=== PATIENT | female | born 1995 | race African-American/Black ===

== ENCOUNTER 2016-09-29 18:54 | Emergency (ER) | payer OTHER ==
[2016-09-29 19:03] VITALS: BP 135/70; PULSE 73; TEMP 98.7; BMI 26.3
--- NOTE | 2016-09-29 19:49 | PDOC ---
[id number] 100 09/29/16 19:01 09/29/16 19:01 09/29/16 19:01 09/29/16 19:01 09/29/16 19:01 ED Treatment Course - LABORATORY CBC & Chemistry Diagram: 09/29/16 20:15 09/29/16 20:15 Medical Decision Making - Medical Decision Making 09/29/16 19:48 agree with care from FILM PRODUCER Roosevelt WallDC/Admit/Observation/Transfer Diagnosis at time of Disposition: GERD (gastroesophageal reflux disease), Abdominal pain - Discharge Dispostion Disposition: HOME - Prescriptions Prescriptions: Famotidine [Pepcid -] 20 mg PO BID #14 tablet Pantoprazole Sodium [Protonix] 40 mg PO BID #28 tablet. Tramadol HCl 50 mg PO Q6H PRN #12 tablet MDD 4 tabs PRN Reason: Severe Pain - Referrals Referrals: Lele Pagan MD [Primary Care Provider] - - Patient Instructions Printed Discharge Instructions: DI for Abdominal Pain-Adult Additional Instructions: FOLLOW UP WITH YOUR PRIMARY CARE PROVIDER. CALL TO SCHEDULE APPOINTMENT. YOU NEED TO SEE YOUR GI DOCTOR WELL. RESCHEDULE YOUR APPOINTMENT. TAKE MEDICATIONS PRESCRIBED. DO NOT DRIVE, DRINK ALCOHOL OR OPERATE HEAVY MACHINERY WHILE TAKING TRAMADOL. Print Language: MALDIVIAN - Post Discharge Activity Work/School Note: Back to Work
[2016-09-29] MEDS ORDERED: FAMOTIDINE 20 MG/50 ML IVPB 50 ML IVPB ONE ×2 (19:59→20:30)
[2016-09-29] MEDS ORDERED: SODIUM CHLORIDE 1,000 ML IV STA ×2 (19:59→21:32)
[2016-09-29] MEDS ORDERED: PANTOPRAZOLE SODIUM 40 MG in SODIUM CHLORIDE 100 ML IVPB ONE (19:59)
[2016-09-29 20:22] LABS: URINE APPEARANCE SLCLOUDY; URINE BILIRUBIN NEGATIVE (NEGATIVE); URINE BLOOD NEGATIVE (NEGATIVE); URINE COLOR YELLOW; URINE GLUCOSE (UA) NEGATIVE (NEGATIVE); URINE KETONE NEGATIVE (NEGATIVE); URINE NITRITE NEGATIVE (NEGATIVE); URINE PROTEIN NEGATIVE (NEGATIVE); URINE UROBILINOGEN NEGATIVE E.U./dl (0.2-1.0)
[2016-09-29 20:25] LABS: URINE LEUK ESTERASE 1+ (NEGATIVE)
[2016-09-29 20:26] LABS: URINE MUCUS RARE; URINE RBC 5 /hpf (0-3); URINE WBC 5 /hpf (3-5)
[2016-09-29] MEDS ORDERED: PANTOPRAZOLE SODIUM 100 ML IVPB ONE (20:30)
[2016-09-29 20:34] LABS: MCH 26.1 pg (25.7-33.7); MCHC 31.7 g/dl (32.0-36.0); MEAN CELL VOLUME 82.6 fl (80-96); MEAN PLT VOLUME 8.5 fl (7.5-11.1); PLATELET COUNT 238 K/MM3 (134-434); RDW 13.7 % (11.6-15.6); WHITE BLOOD COUNT 7.7 K/mm3 (4.0-10.0)
--- NOTE | 2016-09-29 20:34 | PDOC ---
History of Present Illness - General Chief Complaint: Pain Stated Complaint: ABDOMINAL PAIN Time Seen by Provider: 09/29/16 19:39 History Source: Patient Exam Limitations: No Limitations - History of Present Illness Travel History: No Initial Comments: 09/29/16 20:29 21yo Female patient presents to ED c/o epigastric and chest pain radiating to her back. Patient denies n/v/d, fever, diff breathing. She reports no appetite and she does not eat much. Associated constipation at times. LNMP: 3 weeks ago. Denies any other complaints at this time. Timing/Duration: reports: changing over time Quality: reports: moderate Abdominal Pain Onset Location: reports: epigastric Pain Radiation: reports: no radiation Activities at Onset: reports: no specific activity Treatment Prior to Arrive: worse with: analgesics, antacids, cold pack, heat, laxative, enema, other Aggravating Factors: improves with: None Alleviating Factors: improves with: None Past History - Travel Traveled outside of the country in the last 30 days: No Close contact w/someone who was outside of country & ill: No - Past Medical History Allergies/Adverse Reactions: Allergies Allergy/AdvReac Type Severity Reaction Status Date / Time amoxicillin [Amoxicillin] Allergy Severe Itching Verified 09/29/16 19:00 kiwi Allergy Severe Swelling Verified 09/29/16 19:00 Penicillins Allergy Verified 09/29/16 19:00 Home Medications: Ambulatory Orders Albuterol Sulfate Inhaler - [Ventolin HFA Inhaler -] 2 inh PO Q4H PRN #1 inh 04/01 Metronidazole 0.75% Vag. Gel [Metrogel 0.75% Vaginal Gel -] 1 applic VG HS #5 tube 07/02/16 Famotidine [Pepcid -] 20 mg PO BID #14 tablet 09/29/16 Pantoprazole Sodium [Protonix] 40 mg PO BID #28 tablet. 09/29/16 Tramadol HCl 50 mg PO Q6H PRN #12 tablet MDD 4 tabs 09/29/16 Asthma: No Cancer: No Cardiac Disorders: No Diabetes: No HTN: No Suicide Attempt (Hx): No Seizures: No Thyroid Disease: No - Immunization History Immunization Up to Date: Yes (no flu) - Psycho/Social/Smoking Cessation Hx Anxiety: No Suicidal Ideation: No Smoking Status: No Smoking History: Never smoked Have you smoked in the past 12 months: No Number of Cigarettes Smoked Daily: 0 Information on smoking cessation initiated: No Hx Alcohol Use: No Drug/Substance Use Hx: No Substance Use Type: None Hx Substance Use Treatment: No Abd/GI Specific PMHX - Complaint Specific PMHX Colitis: No Diverticulitis: No Gall Bladder Disease: No GERD: No Hepatitis: No Irritable Bowel Synd (IBS): No Pancreatitis: No GI Ulcer Disease: No Review of Systems - Review of Systems Able to Perform ROS?: Yes Is the patient limited Palestinian proficient: No Constitutional: No: Chills, Fever, Loss of Appetite HEENTM: No: Blurred Vision, Double Vision, Nose Congestion, Dental Problems, Difficulty Swallowing Respiratory: No: Cough, Orthopnea, Shortness of Breath Cardiac (ROS): Yes: Chest Pain. No: Edema, Irregular Heart Rate, Lightheadedness, Palpitations, Syncope, Chest Tightness ABD/GI: Yes: Constipated, Poor Appetite, Other (Abdominal Pain). No: Abd. Pain w/ defecation, Blood Streaked Bowels, Diarrhea, Difficulty Swallowing, Nausea, Poor Fluid Intake, Rectal Bleeding, Vomiting, Tarry Stools : No: Burning, Dysuria, Frequency, Flank Pain, Hematuria, Incontinence, Pain Musculoskeletal: Yes: Back Pain. No: Joint Pain, Muscle Pain, Muscle Weakness, Neck Pain Integumentary: No: Dryness, Erythema, Pruritus, Rash Neurological: No: Headache, Numbness, Paresthesia, Seizure, Tingling, Tremors Psychiatric: No: Depression, Frequent Crying, Stressors All Other Systems: Reviewed and Negative *Physical Exam - Vital Signs Last Vital Signs Temp Pulse Resp BP Pulse Ox 98.7 F 73 20 135/70 100 09/29/16 19:01 09/29/16 19:01 09/29/16 19:01 09/29/16 19:01 09/29/16 19:01 - Physical Exam General Appearance: Yes: Nourished, Appropriately Dressed. No: Apparent Distress, Mild Distress, Moderate Distress, Severe Distress HEENT: positive: EOMI, RICARDO, Normal ENT Inspection, Normal Voice, Symmetrical Neck: positive: Trachea midline, Supple Respiratory/Chest: positive: Lungs Clear, Normal Breath Sounds. negative: Respiratory Distress, Accessory Muscle Use, Labored Respiration, Decreased Breath Sounds, Rhonchi, Stridor, Wheezing Cardiovascular: positive: Regular Rhythm, Regular Rate. negative: JVD, Murmur Gastrointestinal/Abdominal: positive: Normal Bowel Sounds, Tender, Flat, Soft, Tenderness (Epigastric region). negative: Increased Bowel Sounds, Distended, Guarding, Rebound Lymphatic: negative: Adenopathy Musculoskeletal: positive: Normal Inspection, Vertebral Tenderness. negative: CVA Tenderness Extremity: positive: Normal Inspection, Normal Range of Motion. negative: Delayed Capillary Refill, Pedal Edema, Swelling, Calf Tenderness Integumentary: positive: Normal Color, Dry, Warm. negative: Clammy, Diaphoresis , Swelling Neurologic: positive: contracts paralegal II-XII NML intact, Fully Oriented, Alert, Normal Mood/ Affect, Normal Response, Motor Strength 01/20 ED Treatment Course - LABORATORY CBC & Chemistry Diagram: 09/29/16 20:15 09/29/16 20:15 - ADDITIONAL ORDERS Additional order review: Laboratory Results 09/29/16 20:10 Urine Color Yellow Urine Appearance Slcloudy Urine pH 8.0 D Ur Specific [place] 1.030 Urine Protein Negative Urine Glucose (UA) Negative Urine Ketones Negative Urine Blood Negative Urine Nitrite Negative Urine Bilirubin Negative Urine Urobilinogen Negative Ur Leukocyte Esterase 1+ H Urine RBC 5 Urine WBC 5 Ur Epithelial Cells Few Urine Mucus Rare Urine HCG, Qual Negative *DC/Admit/Observation/Transfer Diagnosis at time of Disposition: GERD (gastroesophageal reflux disease) Qualifiers: Esophagitis presence: without esophagitis Qualified Code(s): K21.9 - Gastro- esophageal reflux disease without esophagitis Abdominal pain Qualifiers: Abdominal location: epigastric Qualified Code(s): R10.13 - Epigastric pain - Discharge Dispostion Disposition: HOME Condition at time of disposition: Good Admit: No - Prescriptions Prescriptions: Famotidine [Pepcid -] 20 mg PO BID #14 tablet Pantoprazole Sodium [Protonix] 40 mg PO BID #28 tablet. Tramadol HCl 50 mg PO Q6H PRN #12 tablet MDD 4 tabs PRN Reason: Severe Pain - Patient Instructions Printed Discharge Instructions: DI for Abdominal Pain-Adult Additional Instructions: FOLLOW UP WITH YOUR PRIMARY CARE PROVIDER. CALL TO SCHEDULE APPOINTMENT. YOU NEED TO SEE YOUR GI DOCTOR WELL. RESCHEDULE YOUR APPOINTMENT. TAKE MEDICATIONS PRESCRIBED. DO NOT DRIVE, DRINK ALCOHOL OR OPERATE HEAVY MACHINERY WHILE TAKING TRAMADOL. Print Language: MARTINIQUAIS - Post Discharge Activity Work/School Note: Back to Work
[2016-09-29] MEDS ORDERED: OXYCODONE/APAP 5/325MG COMBO TABLET PO ONE (21:10)
[2016-09-29 21:34] LABS: ALBUMIN 3.8 g/dl (3.4-5.0); BILIRUBIN,DIRECT 0.1 mg/dL (0.0-0.2); BILIRUBIN,TOTAL 0.4 mg/dL (0.2-1.0); CALCIUM 8.7 mg/dL (8.5-10.1); CREATININE 0.7 mg/dL (0.55-1.02); TOT PROT 7.1 g/dl (6.4-8.2)
[2016-09-29] MEDS ORDERED: OXYCODONE/APAP 5/325MG COMBO TABLET ONE (21:49)
[2016-09-29] MEDS ORDERED: KETOROLAC TROMETHAMINE 60 MG/2 ML VIAL ONE (21:56)
[2016-09-29] MEDS ORDERED: KETOROLAC TROMETHAMINE 30 MG/1 ML VIAL IM ONE (21:57)
== END 2016-09-29 23:58 | disposition home or self-care (01) ==
LOC: JER 18:54
PROC: 3E0337Z Introduction of Electrolytic and Water Balance Substance into Peripheral Vein, Percutaneous Approach (ICD-10-PCS; principal; 2016-09-29)
PROC: 3E033GC Introduction of Other Therapeutic Substance into Peripheral Vein, Percutaneous Approach (ICD-10-PCS; 2016-09-29)
PROC: 3E033GC Introduction of Other Therapeutic Substance into Peripheral Vein, Percutaneous Approach (ICD-10-PCS; 2016-09-29)
PROC: 3E0233Z Introduction of Anti-inflammatory into Muscle, Percutaneous Approach (ICD-10-PCS; 2016-09-29)
DX: K21.9 Gastro-esophageal reflux disease without esophagitis (principal)
CPT/HCPCS: 36415; 76705-TC; 80048; 80076; 81003; 81015; 84703; 85027; 99281-25

== ENCOUNTER 2017-03-27 11:01 | Emergency (ER) | payer OTHER ==
[2017-03-27 11:06] VITALS: BP 130/64; PULSE 66; TEMP 98; BMI 28.7
--- NOTE | 2017-03-27 11:23 | PDOC ---
History of Present Illness - General Chief Complaint: Rash Stated Complaint: RASH Time Seen by Provider: 03/27/17 11:12 History Source: Patient Exam Limitations: No Limitations - History of Present Illness Initial Comments: 03/27/17 19:52 22 yr female with itchy rash to left ring finger for 4 days . pt has history of eczema states this is the same. Past History - Past Medical History Allergies/Adverse Reactions: Allergies Allergy/AdvReac Type Severity Reaction Status Date / Time amoxicillin [Amoxicillin] Allergy Severe Itching Verified 03/27/17 11:03 kiwi Allergy Severe Swelling Verified 03/27/17 11:03 Penicillins Allergy Verified 03/27/17 11:03 Home Medications: Ambulatory Orders Desonide 15 gm TP BID #1 cream..g. 03/27/17 Asthma: No Cancer: No Cardiac Disorders: No Diabetes: No HTN: No Suicide Attempt (Hx): No Seizures: No Thyroid Disease: No Other medical history: none - Immunization History Immunization Up to Date: Yes (no flu) - Psycho/Social/Smoking Cessation Hx Anxiety: No Suicidal Ideation: No Smoking Status: No Smoking History: Never smoked Have you smoked in the past 12 months: No Number of Cigarettes Smoked Daily: 0 Hx Alcohol Use: No Drug/Substance Use Hx: No Substance Use Type: None Hx Substance Use Treatment: No Review of Systems - Review of Systems Able to Perform ROS?: Yes Is the patient limited Malay proficient: No Constitutional: No: Symptoms Reported HEENTM: No: Symptoms Reported Respiratory: No: Symptoms reported Cardiac (ROS): No: Symptoms Reported ABD/GI: No: Symptoms Reported : No: Symptoms Reported Integumentary: Yes: See HPI *Physical Exam - Vital Signs Last Vital Signs Temp Pulse Resp BP Pulse Ox 98.0 F 66 18 130/64 100 03/27/17 11:03 03/27/17 11:03 03/27/17 11:03 03/27/17 11:03 03/27/17 11:03 - Physical Exam General Appearance: Yes: Nourished, Appropriately Dressed HEENT: positive: EOMI, RICARDO Extremity: positive: Normal Capillary Refill, Normal Inspection, Normal Range of Motion Integumentary: positive: Rash (left ring and middle digits web space and distal phalynx with excoriated, scaly rash , no pus drainage) Medical Decision Making - Medical Decision Making 03/27/17 19:53 cc: itchy rash to fingers history of eczema pt states the same symptoms as before no fever will prescribe cortisone cream and derm follow up pt agrees with plan of care and understands at home care as well for eczema *DC/Admit/Observation/Transfer Diagnosis at time of Disposition: Eczema Qualifiers: Eczema type: flexural Qualified Code(s): L20.82 - Flexural eczema - Discharge Dispostion Disposition: HOME Condition at time of disposition: Good - Prescriptions Prescriptions: Desonide 15 gm TP BID #1 cream..g. - Referrals Referrals: Lele Pagan MD [Primary Care Provider] - Suzette Sahu MD [Staff Physician] - - Patient Instructions Additional Instructions: cool water to wash, avoid washing hands frequently apply the steroid cream 2-3 times a day and continue to apply an emolient such as Eucerin or Lubriderm follow with the plastic mould maker if any worsening symptoms
== END 2017-03-27 11:37 | disposition home or self-care (01) ==
LOC: JERFT 11:01
DX: L20.82 Flexural eczema (principal)
CPT/HCPCS: 99281-25

== ENCOUNTER 2017-04-06 12:34 | Emergency (ER) | payer OTHER ==
[2017-04-06 12:39] VITALS: BP 119/79; PULSE 67; TEMP 97.8; BMI 27.4
--- NOTE | 2017-04-06 13:25 | PDOC ---
History of Present Illness - General Chief Complaint: Rash Stated Complaint: Rash on groin area, pain Time Seen by Provider: 04/06/17 13:08 History Source: Patient Exam Limitations: No Limitations - History of Present Illness Initial Comments: 04/06/17 13:25 22 yr female history of eczema c/o ingrown hair to groin for 2 days. no fever no chills no vaginal discharge. Past History - Past Medical History Allergies/Adverse Reactions: Allergies Allergy/AdvReac Type Severity Reaction Status Date / Time amoxicillin [Amoxicillin] Allergy Severe Itching Verified 04/06/17 12:38 kiwi Allergy Severe Swelling Verified 04/06/17 12:38 Penicillins Allergy Verified 04/06/17 12:38 Home Medications: Ambulatory Orders NK [No Known Home Medication] 04/06/17 Asthma: No Cancer: No Cardiac Disorders: No Diabetes: No HTN: No Suicide Attempt (Hx): No Seizures: No Thyroid Disease: No - Immunization History Immunization Up to Date: Yes (no flu) - Psycho/Social/Smoking Cessation Hx Anxiety: No Suicidal Ideation: No Smoking Status: No Smoking History: Never smoked Have you smoked in the past 12 months: No Number of Cigarettes Smoked Daily: 0 Information on smoking cessation initiated: No Hx Alcohol Use: No Drug/Substance Use Hx: No Substance Use Type: None Hx Substance Use Treatment: No *Physical Exam - Vital Signs Last Vital Signs Temp Pulse Resp BP Pulse Ox 97.8 F 67 18 119/79 100 04/06/17 12:37 04/06/17 12:37 04/06/17 12:37 04/06/17 12:37 04/06/17 12:37 - Physical Exam General Appearance: Yes: Nourished, Appropriately Dressed HEENT: positive: EOMI, RICARDO Neck: positive: Supple Respiratory/Chest: positive: Lungs Clear, Normal Breath Sounds Cardiovascular: positive: Regular Rhythm, Regular Rate Musculoskeletal: positive: Normal Inspection Extremity: positive: Normal Capillary Refill, Normal Inspection, Normal Range of Motion Integumentary: positive: Normal Color, Dry, Warm, Other (left labia minora with martinez x3 1mm in size each, grouped together, no drainage no fluctuance) Neurologic: positive: Fully Oriented, Alert, Normal Mood/Affect, Normal Response , Motor Strength 5/5 Medical Decision Making - Medical Decision Making 04/06/17 13:26 cc: ingrown hair to vaginal area no drainage, will culture to confirm not herpetic ,as the area is in the labia, is grouped together with suspicious white area. pt denies burning or pain, denies tingling to the area dc inst for frequent moist compresses, warm baths iron melter follow up pt agrees with the plan of care all questions asked and answered. 04/06/17 13:27 *DC/Admit/Observation/Transfer Diagnosis at time of Disposition: Ingrown hair - Discharge Dispostion Disposition: HOME Condition at time of disposition: Good - Patient Instructions Additional Instructions: frequent moist warm compresses to the area, no creams or vaseline to the area keep dry follow with your mixed animal veterinarian if worsening symptoms
== END 2017-04-06 13:26 | disposition home or self-care (01) ==
LOC: JERFT 12:34
DX: L73.1 Pseudofolliculitis barbae (principal)
CPT/HCPCS: 87255; 99281-25

== ENCOUNTER 2018-01-07 10:47 | Emergency (ER) | payer OTHER ==
[2018-01-07 10:56] VITALS: BP 131/73; PULSE 62; TEMP 98.7; BMI 28.1
--- NOTE | 2018-01-07 11:21 | PDOC ---
History of Present Illness - General Chief Complaint: Urinary Problem Stated Complaint: COUGH Time Seen by Provider: 01/07/18 11:09 - History of Present Illness Initial Comments: 01/07/18 11:17 CHIEF COMPLAINT: urinary frequency HISTORY OF PRESENT ILLNESS: 22 yo F with no PMH presents to [facility] with urinary pressure and frequency. She reports that she went to the OBGYN a few days ago and had a urine test that showed "strep in my urine, but because I didnt' have any symptoms my doctor didn't prescribe anything." She denies any back pain, fever, chills, vomiting, or diarrhea. PAST MEDICAL HISTORY: Denies past medical history FAMILY HISTORY: Denies SOCIAL HISTORY: Denies tobacco, alcohol, illicit drug use. SURGICAL HISTORY: Denies ALLERGIES: PCN REVIEW OF SYSTEMS General/Constitutional: Denies fever or chills. Denies weakness, weight change. HEENT: Denies change in vision. Denies ear pain or discharge. Denies sore throat. Cardiovascular: Denies chest pain or shortness of breath. Respiratory: Denies cough, wheezing, or hemoptysis. Gastrointestinal: Denies nausea, vomiting, diarrhea or constipation. Denies rectal bleeding. Genitourinary: Urinary "pressure" and frequency. Denies pain or burning with urination. Musculoskeletal: Denies joint or muscle swelling or pain. Denies neck or back pain. PHYSICAL EXAM General Appearance: Well-appearing, appropriately dressed. No apparent distress , no intoxication. Respiratory/Chest: Lungs CTAB. Cardiovascular: RRR. S1, S2. Gastrointestinal/Abdominal: Normal bowel sounds. Abdomen soft, non-distended. No tenderness or rebound tenderness. No organomegaly, pulsatile mass, guarding , hernia, hepatomegaly, splenomegaly. Musculoskeletal/Extremities: Normal inspection. FROM of all extremities, normal capillary refill. Pelvis Stable. No CVA tenderness. No tenderness to extremities, pedal edema, swelling, erythema or deformity. Integumentary: Appropriate color, dry, warm. No cyanosis, erythema, jaundice or rash Neurologic: automobile mechanic assistant II-XII intact. Fully oriented, alert. Appropriate mood/affect. Motor strength 5/5. No appreciable EOM palsy, facial droop or sensory deficit. Past History - Past Medical History Allergies/Adverse Reactions: Allergies Allergy/AdvReac Type Severity Reaction Status Date / Time amoxicillin [Amoxicillin] Allergy Severe Itching Verified 01/07/18 10:57 kiwi Allergy Severe Swelling Verified 01/07/18 10:57 Penicillins Allergy Verified 01/07/18 10:57 Home Medications: Ambulatory Orders Cephalexin [Keflex] 500 mg PO BID #14 capsule 01/07/18 Asthma: No Cancer: No Cardiac Disorders: No COPD: No Diabetes: No HTN: No Seizures: No Thyroid Disease: No - Immunization History Immunization Up to Date: Yes (no flu) - Suicide/Smoking/Psychosocial Hx Smoking Status: No Smoking History: Current every day smoker Have you smoked in the past 12 months: No Number of Cigarettes Smoked Daily: 0 Information on smoking cessation initiated: No Hx Alcohol Use: No Drug/Substance Use Hx: No Substance Use Type: None Hx Substance Use Treatment: No Abd/GI Specific PMHX - Complaint Specific PMHX Colitis: No Diverticulitis: No Gall Bladder Disease: No GERD: No Hepatitis: No Irritable Bowel Synd (IBS): No Pancreatitis: No GI Ulcer Disease: No *Physical Exam - Vital Signs Last Vital Signs Temp Pulse Resp BP Pulse Ox 98.7 F 62 18 131/73 100 01/07/18 10:53 01/07/18 10:53 01/07/18 10:53 01/07/18 10:53 01/07/18 10:53 Medical Decision Making - Medical Decision Making 01/07/18 11:19 22 yo F with no PMH presents to [facility] with urinary pressure and frequency. -UA, UCx, upreg abx Advised patient to take medication as prescribed and follow up with emergency generator mechanic if symptoms persist. Advised patient of signs and symptoms for return to ED. Patient verbalized understanding and agrees to plan. *DC/Admit/Observation/Transfer Diagnosis at time of Disposition: UTI (urinary tract infection) - Discharge Dispostion Disposition: HOME Condition at time of disposition: Stable Admit: No - Prescriptions Prescriptions: Cephalexin [Keflex] 500 mg PO BID #14 capsule - Referrals - Patient Instructions Printed Discharge Instructions: DI for Urinary Tract Infection (UTI) Additional Instructions: Please take medications as prescribed; follow up with your OBGYN if symptoms persist past 5-7 days. If you develop fever, chills, vomiting, diarrhea, or any new or worsening symptoms, please return to the ER. - Post Discharge Activity
[2018-01-07 11:28] LABS: HCG,QUALITATIVE URINE NEGATIVE
[2018-01-07 11:29] LABS: URINE APPEARANCE CLOUDY; URINE BILIRUBIN NEGATIVE (<2.0 mg/dL); URINE BLOOD 1+ (NEGATIVE); URINE COLOR YELLOW; URINE GLUCOSE (UA) NEGATIVE (NEGATIVE); URINE KETONE NEGATIVE (NEGATIVE); URINE NITRITE NEGATIVE (NEGATIVE); URINE UROBILINOGEN NEGATIVE mg/dL (0.2-1.0)
[2018-01-07 11:30] LABS: URINE LEUK ESTERASE 3+ (NEGATIVE); URINE PROTEIN 1+ (NEGATIVE)
[2018-01-07 11:32] LABS: EPI CELLS MODERATE /HPF (FEW); URINE MUCUS MANY
== END 2018-01-07 11:59 | disposition home or self-care (01) ==
LOC: JERFT 10:47
DX: N39.0 Urinary tract infection, site not specified (principal)
CPT/HCPCS: 81003; 81015; 84703; 87086; 87186; 99281-25

== ENCOUNTER 2018-01-15 09:28 | Emergency (ER) | payer OTHER | END 2018-01-15 14:00 | disposition home or self-care (01) | LOC: JER 09:28 | PROC: 3E033NZ Introduction of Analgesics, Hypnotics, Sedatives into Peripheral Vein, Percutaneous Approach (ICD-10-PCS; principal; 2018-01-15) | PROC: 3E0337Z Introduction of Electrolytic and Water Balance Substance into Peripheral Vein, Percutaneous Approach (ICD-10-PCS; 2018-01-15) | DX: N83.209 Unspecified ovarian cyst, unspecified side (principal) | CPT/HCPCS: 36415; 76830-TC; 80053; 81003; 81015; 84703; 85027; 96374; 99283-25; J0131; J7030 ==

== ENCOUNTER 2018-08-23 11:02 | Emergency (ER) | payer OTHER ==
[2018-08-23 11:12] VITALS: BP 127/66; PULSE 71; TEMP 97.9; BMI 28.2
[2018-08-23 11:21] LABS: URINE APPEARANCE CLOUDY; URINE BILIRUBIN NEGATIVE (<2.0 mg/dL); URINE COLOR LTYELLOW; URINE GLUCOSE (UA) NEGATIVE (NEGATIVE); URINE KETONE NEGATIVE (NEGATIVE); URINE LEUK ESTERASE 3+ (NEGATIVE); URINE NITRITE NEGATIVE (NEGATIVE); URINE PROTEIN 1+ (NEGATIVE); URINE UROBILINOGEN NEGATIVE mg/dL (0.2-1.0)
[2018-08-23] MEDS ORDERED: AZITHROMYCIN 500 MG TABLET PO ONE (11:46)
--- NOTE | 2018-08-23 11:48 | PDOC ---
History of Present Illness - General Chief Complaint: Urinary Problem Stated Complaint: PAIN Time Seen by Provider: 08/23/18 11:36 History Source: Patient Exam Limitations: No Limitations - History of Present Illness Travel History: No Initial Comments: 08/23/18 11:43 HISTORY OF PRESENT ILLNESS: This is a 23-year-old woman with past medical history of genital herpes an abnormal Pap smear who presents emergency department for evaluation of urinary urgency for the past week. Patient reports she has foul-smelling urine in addition to the emergency. She denies any hematuria or dysuria. She denies vaginal discharge or rectal bleeding. Patient reports having unprotected vaginal sex with one male partner since her last STD testing. No recent travel or sick contacts. PAST MEDICAL HISTORY: HSV-2 SURGICAL HISTORY: PCN ALLERGIES: No known drug allergies REVIEW OF SYSTEMS General/Constitutional: Denies fever or chills. Denies weakness, weight change. HEENT: Denies change in vision. Denies ear pain or discharge. Denies sore throat. Cardiovascular: Denies chest pain or shortness of breath. Respiratory: Denies cough, wheezing, or hemoptysis. Gastrointestinal: Denies nausea, vomiting, diarrhea or constipation. Denies rectal bleeding. Genitourinary: Denies dysuria, frequency or hematuria. +urinary urgency and suprapubic pressure. Musculoskeletal: Denies joint or muscle swelling or pain. Denies neck or back pain. Skin and breasts: Denies rash or easy bruising. Neurologic: Denies headache, vertigo, loss of consciousness, or loss of sensation. Psychiatric: Denies depression or anxiety. Endocrine: Denies increased thirst. Denies abnormal weight change. Hematologic/Lymphatic: Denies anemia, easy bleeding, or history of blood clots. Allergic/Immunologic: Denies hives or skin allergy. Denies latex allergy. PHYSICAL EXAM General Appearance: Well-appearing, appropriately dressed. No apparent distress , no intoxication. Gastrointestinal/Abdominal: Normal bowel sounds. Abdomen soft, non-distended. No tenderness or rebound tenderness. No organomegaly, pulsatile mass, guarding, hernia, hepatomegaly, splenomegaly. Lymphatic: No adenopathy, tenderness. Musculoskeletal/Extremities: Normal inspection. FROM of all extremities, normal capillary refill. Pelvis Stable. No CVA tenderness. No tenderness to extremities, pedal edema, swelling, erythema or deformity. Past History - Past Medical History Allergies/Adverse Reactions: Allergies Allergy/AdvReac Type Severity Reaction Status Date / Time amoxicillin [Amoxicillin] Allergy Severe Itching Verified 08/23/18 11:06 kiwi Allergy Severe Swelling Verified 08/23/18 11:06 Penicillins Allergy Verified 08/23/18 11:06 Home Medications: Ambulatory Orders Sulfamethoxazole/Trimethoprim [Bactrim Ds -] 1 tab PO BID #14 tablet 08/23/18 Asthma: No Cancer: No Cardiac Disorders: No COPD: No DVT: No Diabetes: No HTN: No Seizures: No Thyroid Disease: No Other medical history: "abnormal PAP smears" - Reproductive History Cervical CA: No Dysfunctional Uterine Bleeding: No Ectopic : No Endometrial CA: No Polycystic Ovaries: No Tubal Ligation: No - Immunization History Immunization Up to Date: Yes (no flu) - Suicide/Smoking/Psychosocial Hx Smoking Status: No Smoking History: Smoker current status UNK Have you smoked in the past 12 months: No Number of Cigarettes Smoked Daily: 0 'Breaking Loose' booklet given: 01/15/18 Hx Alcohol Use: No Drug/Substance Use Hx: No Substance Use Type: None Hx Substance Use Treatment: No Abd/GI Specific PMHX - Complaint Specific PMHX Colitis: No Diverticulitis: No Gall Bladder Disease: No GERD: No Hepatitis: No Irritable Bowel Synd (IBS): No Pancreatitis: No GI Ulcer Disease: No *Physical Exam - Vital Signs Last Vital Signs Temp Pulse Resp BP Pulse Ox 97.9 F 71 16 127/66 100 08/23/18 11:10 08/23/18 11:10 08/23/18 11:10 08/23/18 11:10 08/23/18 11:10 Moderate Sedation - Procedure Monitoring Vital Signs: Procedure Monitoring Vital Signs Temperature 97.9 F 08/23/18 11:10 Pulse Rate 71 08/23/18 11:10 Respiratory Rate 16 08/23/18 11:10 Blood Pressure 127/66 08/23/18 11:10 O2 Sat by Pulse Oximetry (%) 100 08/23/18 11:10 Medical Decision Making - Medical Decision Making 08/23/18 11:46 A/P: 23-year-old woman with 1 week of urinary urgency and foul-smelling urine No CVA tenderness Abdomen soft nontender nondistended Urine , urinalysis, urine culture, urine gonorrhea and chlamydia, azithromycin, ceftriaxone (PCN allergy- no cross-sesitivity with 3rd gen cephalosporins), reassess 08/23/18 12:45 Pt has refused GC treatment today. Agrees to return if C&S is positive. Urinalysis reveals 3+ leuk esterase. Given patient has clinical signs of urinary tract infection I will treat. Previous urine cultures have revealed pansensitive organisms. I'll discharge the patient on Bactrim and to follow-up with her primary doctor as scheduled. *DC/Admit/Observation/Transfer Diagnosis at time of Disposition: UTI (urinary tract infection) Qualifiers: Urinary tract infection type: acute cystitis Hematuria presence: without hematuria Qualified Code(s): N30.00 - Acute cystitis without hematuria - Discharge Dispostion Disposition: HOME Condition at time of disposition: Stable Decision to Admit order: No - Prescriptions Prescriptions: Sulfamethoxazole/Trimethoprim [Bactrim Ds -] 1 tab PO BID #14 tablet - Referrals - Patient Instructions Additional Instructions: Rest, drink lots of fluids: Teas, water, soups Avoid contact with others until fevers and symptoms resolved Lots of handwashing and good hygiene Continue [id number] medications for symptomatic relief Tylenol or Motrin for fever and pain Continue all of antibiotics until completed Followup with private physician in one week for repeat urinalysis/reevaluation Return to emergency department for worsened symptoms, fevers, dehydration - Post Discharge Activity
[2018-08-23] MEDS ORDERED: AZITHROMYCIN 250 MG TABLET ONE (11:49)
[2018-08-23 12:01] LABS: HCG,QUALITATIVE URINE Negative
[2018-08-23 12:50] LABS: EPI CELLS FEW /HPF (FEW); URINE BACTERIA RARE /hpf (NONE SEEN)
== END 2018-08-23 12:56 | disposition home or self-care (01) ==
LOC: JERFT 11:02
DX: N30.00 Acute cystitis without hematuria (principal)
CPT/HCPCS: 81003; 81015; 84703; 87086; 87186; 99281-25

== ENCOUNTER 2018-12-25 09:37 | Emergency (ER) | payer OTHER ==
[2018-12-25 09:45] VITALS: BP 130/73; PULSE 80; TEMP 97.8; BMI 27.4
[2018-12-25] MEDS ORDERED: ALBUTEROL SO4 2.5/IPRATROPIUM 0.5 INH SOL 3 ML VIAL.NEB. NEB ONE ×2 (09:48→09:51)
--- NOTE | 2018-12-25 10:03 | PDOC ---
History of Present Illness - General Chief Complaint: Cold Symptoms Stated Complaint: TROUBLE BREATHING Time Seen by Provider: 12/25/18 09:47 History Source: Patient Exam Limitations: Clinical Condition - History of Present Illness Initial Comments: 12/25/18 09:58 Patient with no significant past medical history present with complaint of 4 day history of cough, nasal congestion, runny nose and intermittent wheezing. Patient also reported hoarse voice since yesterday .Denies fever, chills. Denies taking anything for symptoms. Timing/Duration: other (4 days) Past History - Past Medical History Allergies/Adverse Reactions: Allergies Allergy/AdvReac Type Severity Reaction Status Date / Time amoxicillin [Amoxicillin] Allergy Severe Itching Verified 09/11/18 07:58 kiwi Allergy Severe Swelling Verified 09/11/18 07:58 Penicillins Allergy Severe Swelling Verified 12/25/18 09:38 Home Medications: Ambulatory Orders Benzonatate [Tessalon Pearls -] 100 mg PO Q8H PRN #21 capsule 12/25/18 Ipratropium [place] 2 spray NS BID PRN #1 spray 12/25/18 Loratadine 10 mg PO DAILY #10 capsule 12/25/18 Methylprednisolone [Medrol Dose Edy] 4 mg PO ASDIR #21 tablet 12/25/18 Asthma: No Cancer: No Cardiac Disorders: No COPD: No DVT: No Diabetes: No HTN: No Seizures: No Thyroid Disease: No - Reproductive History Cervical CA: No Dysfunctional Uterine Bleeding: No Ectopic : No Endometrial CA: No Polycystic Ovaries: No Tubal Ligation: No - Immunization History Immunization Up to Date: Yes (no flu) - Suicide/Smoking/Psychosocial Hx Smoking Status: No Smoking History: Current every day smoker Have you smoked in the past 12 months: Yes Number of Cigarettes Smoked Daily: 0 Information on smoking cessation initiated: Yes 'Breaking Loose' booklet given: 01/15/18 Hx Alcohol Use: No Drug/Substance Use Hx: No Substance Use Type: None Hx Substance Use Treatment: No Review of Systems - Review of Systems Able to Perform ROS?: Yes Is the patient limited Welsh proficient: No Constitutional: No: Chills, Fever, Malaise HEENTM: Yes: Symptoms Reported, See HPI, Nose Congestion, Throat Pain. No: Eye Pain, Blurred Vision, Tearing, Recent change in vision, Double Vision, Cataracts , Ear Pain, Ocular Prothesis, Ear Discharge, Nose Pain, Tinnitus, Nose Bleeding , Hearing Loss, Throat Swelling, Mouth Pain, Dental Problems, Difficulty Swallowing, Mouth Swelling, Other Respiratory: Yes: Symptoms reported, See HPI, Cough, Wheezing. No: Orthopnea, Shortness of Breath, SOB with Exertion, SOB at Rest, Stridor, Productive cough, Hemoptysis, Other Cardiac (ROS): No: Symptoms Reported, See HPI, Chest Pain, Edema, Irregular Heart Rate, Lightheadedness, Palpitations, Syncope, Chest Tightness, Other ABD/GI: No: Constipated, Diarrhea, Nausea, Vomiting, Abdominal cramping Neurological: No: Headache, Dizziness All Other Systems: Reviewed and Negative *Physical Exam - Vital Signs Last Vital Signs Temp Pulse Resp BP Pulse Ox 97.8 F 80 20 130/73 99 12/25/18 09:39 12/25/18 09:39 12/25/18 09:39 12/25/18 09:39 12/25/18 09:39 - Physical Exam Comments: 12/25/18 10:01 GENERAL: Well developed, well nourished. Awake and alert. No acute distress. HEENT: Normocephalic, atraumatic. PERRLA, EOMI. No conjunctival pallor. Sclera are non-icteric. Moist mucous membranes. Oropharynx is clear. NECK: Supple. Full ROM. CARDIOVASCULAR: Regular rate and rhythm. No murmurs, rubs, or gallops. Distal pulses are 2+ and symmetric. PULMONARY: Mild diffuse wheezing.No evidence of respiratory distress. No rales or rhonchi. ABDOMINAL: Soft. Non-tender. Non-distended. No rebound or guarding. No organomegaly. Normoactive bowel sounds. MUSCULOSKELETAL Normal range of motion at all joints. SKIN: Warm and dry. Normal capillary refill. No rashes. NEUROLOGICAL: Alert, awake, appropriate. Gait is normal without ataxia. PSYCHIATRIC: Cooperative. Good eye contact. Appropriate mood General Appearance: Yes: Nourished, Appropriately Dressed. No: Apparent Distress ED Treatment Course - Medications Given in the ED: ED Medications Discontinued Medications Generic Name Dose Route Start Last Admin Trade Name Freq PRN Reason Stop Dose Admin Albuterol/Ipratropium 1 amp 12/25/18 09:48 12/25/18 09:57 Duoneb - NEB 12/25/18 09:49 1 amp ONCE ONE Administration Medical Decision Making - Medical Decision Making 12/25/18 10:01 Patient with no significant past medical history present with complaint of 4 day history of URI symptoms with hoarse voice and sore throat. Patient denies fever or chills or any other symptoms. Exam significant for mild diffuse wheezing without respiratory distress. Otherwise normal exam. Symptoms likely viral URI versus less likely strep pharyngitis with URI Rapid strep ordered to rule out strep pharyngitis. Nebulizer treatment with Atrovent and after ipratropium bromide ordered. The patient with treated for viral URI if negative strep with PCP follow-up. 12/25/18 10:53 rapid strep negative. Patient stable for discharge on outpatient treatment for viral URI with PCP follow-up *DC/Admit/Observation/Transfer Diagnosis at time of Disposition: Laryngitis Upper respiratory infection Qualifiers: URI type: unspecified viral URI Qualified Code(s): J06.9 - Acute upper respiratory infection, unspecified - Discharge Dispostion Disposition: HOME Condition at time of disposition: Stable Decision to Admit order: No - Prescriptions Prescriptions: Benzonatate [Tessalon Pearls -] 100 mg PO Q8H PRN #21 capsule PRN Reason: Cough Ipratropium [place] 2 spray NS BID PRN #1 spray PRN Reason: nasal congestion Loratadine 10 mg PO DAILY #10 capsule Methylprednisolone [Medrol Dose Edy] 4 mg PO ASDIR #21 tablet - Referrals - Patient Instructions Printed Discharge Instructions: DI for Viral Upper Respiratory Infection -- Adult Additional Instructions: Your strep test was negative. Take medications as prescribed. Increase fluid intake. Follow-up with PCP as needed - Post Discharge Activity Forms/Work/School Notes: Back to Work
== END 2018-12-25 10:59 | disposition home or self-care (01) ==
LOC: JERFT 09:37
PROC: 3E0F7GC Introduction of Other Therapeutic Substance into Respiratory Tract, Via Natural or Artificial Opening (ICD-10-PCS; principal; 2018-12-25)
DX: J04.0 Acute laryngitis (principal); J06.9 Acute upper respiratory infection, unspecified
CPT/HCPCS: 87070; 87880; 94640; 99281-25

== ENCOUNTER 2019-01-04 08:41 | Emergency (ER) | payer OTHER ==
[2019-01-04 08:54] VITALS: BP 129/68; PULSE 64; TEMP 97.5; BMI 27.4
--- NOTE | 2019-01-04 09:34 | PDOC ---
History of Present Illness - General Chief Complaint: Pain Stated Complaint: LF FOOT NUMB / BURNING PAIN Time Seen by Provider: 01/04/19 08:57 History Source: Patient Exam Limitations: No Limitations - History of Present Illness Initial Comments: 01/04/19 09:29 Patient came with complaints of intermittent numbness to her left foot with some radiating pain from her low back. Patient states had a muscle spasm last year that comes and goes had a recurrence of that spasm that time is had some intermittent pain to her left foot. 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 Does not wear supportive shoes, and has no organized activity/exercise pattern. Timing/Duration: unsure, 1 week, intermittent Severity: mild, moderate Past History - Travel Traveled outside of the country in the last 30 days: No Close contact w/someone who was outside of country & ill: No - Past Medical History Allergies/Adverse Reactions: Allergies Allergy/AdvReac Type Severity Reaction Status Date / Time amoxicillin [Amoxicillin] Allergy Severe Itching Verified 01/04/19 08:52 kiwi Allergy Severe Swelling Verified 01/04/19 08:52 Penicillins Allergy Severe Swelling Verified 01/04/19 08:52 Home Medications: Ambulatory Orders NK [No Known Home Medication] 01/04/19 Asthma: No Cancer: No Cardiac Disorders: No COPD: No DVT: No Diabetes: No HTN: No Seizures: No Thyroid Disease: No - Reproductive History Cervical CA: No Dysfunctional Uterine Bleeding: No Ectopic : No Endometrial CA: No Polycystic Ovaries: No Tubal Ligation: No - Immunization History Immunization Up to Date: Yes (no flu) - Suicide/Smoking/Psychosocial Hx Smoking Status: No Smoking History: Never smoked Have you smoked in the past 12 months: Yes Number of Cigarettes Smoked Daily: 0 'Breaking Loose' booklet given: 01/15/18 Hx Alcohol Use: No Drug/Substance Use Hx: No Substance Use Type: None Hx Substance Use Treatment: No Review of Systems - Review of Systems Able to Perform ROS?: Yes Is the patient limited Tristanian proficient: Yes Constitutional: Yes: Symptoms Reported, See HPI, Malaise. No: Chills, Fever, Loss of Appetite HEENTM: Yes: See HPI. No: Symptoms Reported Respiratory: No: Symptoms reported Musculoskeletal: Yes: Symptoms Reported, See HPI, Muscle Pain *Physical Exam - Vital Signs Last Vital Signs Temp Pulse Resp BP Pulse Ox 97.5 F L 64 17 129/68 99 01/04/19 08:52 01/04/19 08:52 01/04/19 08:52 01/04/19 08:52 01/04/19 08:52 - Physical Exam General Appearance: Yes: Nourished, Appropriately Dressed. No: Apparent Distress HEENT: positive: RICARDO, Normal ENT Inspection, TMs Normal, Pharynx Normal Neck: positive: Supple. negative: Tender Respiratory/Chest: positive: Lungs Clear Musculoskeletal: positive: Normal Inspection. negative: Muscle Spasm (palpable spasm noted to the left side paravertebral spine and buttock but mild.. No true spine tenderness.), Vertebral Tenderness Extremity: positive: Normal Capillary Refill, Normal Inspection, Normal Range of Motion (ambulatory without unsteadiness or limp, neurovascular intact to foot , sensation is intact. 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 Encouraged patient to changed shoes and get more support, if symptoms persist would recommend follow-up with orthopedist or neurology to rule out any true radiculopathy *DC/Admit/Observation/Transfer Diagnosis at time of Disposition: Radiculopathy of leg - Discharge Dispostion Disposition: HOME Condition at time of disposition: Stable Decision to Admit order: No - Referrals - Patient Instructions Printed Discharge Instructions: DI for Lumbar Radiculopathy Additional Instructions: Rest, no heavy lifting or exercise until pain is resolved Hot soaks to neck and low back as often as possible/hot showers or Jacuzzis No massage or therapy until spasm is gone Find and use good supportive shoes for work and consider support stockings to augment good circulation Continue ibuprofen 400 mg tablets mg tablet, 1 tablet every 8 hours as needed for pain and swelling If not significant improvement within 24 hours with medication and rest regime, followup with private physician for change in medications and /or therapy. - Post Discharge Activity
== END 2019-01-04 09:33 | disposition home or self-care (01) ==
LOC: JERFT 08:41
DX: M54.16 Radiculopathy, lumbar region (principal)
CPT/HCPCS: 99281-25

== ENCOUNTER 2019-03-11 08:59 | Emergency (ER) | payer OTHER ==
[2019-03-11 09:04] VITALS: BP 142/67; PULSE 84; TEMP 98.4; BMI 27.4
[2019-03-11 10:07] LABS: HCG,QUALITATIVE URINE Positive
[2019-03-11 10:12] LABS: EPI CELLS 2.8 /HPF (0-5/HPF); HYALINE CASTS 4 /lpf (0-8); PH,URINE 5.5 (5.0-8.0); URINE APPEARANCE CLEAR; URINE BILIRUBIN NEGATIVE (NEGATIVE); URINE COLOR YELLOW; URINE GLUCOSE (UA) NEGATIVE (NEGATIVE); URINE KETONE TRACE (NEGATIVE); URINE LEUK ESTERASE 1+ (NEGATIVE); URINE NITRITE NEGATIVE (NEGATIVE); URINE PROTEIN NEGATIVE (NEGATIVE); URINE RBC 3 /hpf (0-4); URINE UROBILINOGEN 0.2 mg/dL (0.2-1.0); URINE WBC 4 /hpf (0-5)
--- NOTE | 2019-03-11 10:48 | PDOC ---
History of Present Illness - General Chief Complaint: Vaginal Sxs Stated Complaint: vaginal symptoms Time Seen by Provider: 03/11/19 09:33 History Source: Patient Exam Limitations: No Limitations - History of Present Illness Travel History: No Initial Comments: 03/11/19 13:25 atient states is concerned has a bacterial infection vaginally. Uses Summer's Nadja vaginal wipes and douches and understands kills normal carmel. However states the past few days has had increasing amount of thin white yellow drainage that is not foul-smelling. States partner is not infected, has no drainage, swelling or any problems. Is also uncertain as to her status. Timing/Duration: reports: constant Quality: reports: mild, cramping Abdominal Pain Onset Location: reports: suprapubic Past History - Travel Traveled outside of the country in the last 30 days: No Close contact w/someone who was outside of country & ill: No - Past Medical History Allergies/Adverse Reactions: Allergies Allergy/AdvReac Type Severity Reaction Status Date / Time amoxicillin [Amoxicillin] Allergy Severe Itching Verified 03/11/19 09:01 kiwi Allergy Severe Swelling Verified 03/11/19 09:01 Penicillins Allergy Severe Swelling Verified 03/11/19 09:01 Home Medications: Ambulatory Orders NK [No Known Home Medication] 01/04/19 Asthma: No Cancer: No Cardiac Disorders: No COPD: No DVT: No Diabetes: No HTN: No Seizures: No Thyroid Disease: No - Reproductive History Cervical CA: No Dysfunctional Uterine Bleeding: No Ectopic : No Endometrial CA: No Polycystic Ovaries: No Tubal Ligation: No - Immunization History Immunization Up to Date: Yes (no flu) - Suicide/Smoking/Psychosocial Hx Smoking Status: No Smoking History: Current every day smoker Have you smoked in the past 12 months: Yes Number of Cigarettes Smoked Daily: 10 Information on smoking cessation initiated: No 'Breaking Loose' booklet given: 01/15/18 Hx Alcohol Use: No Drug/Substance Use Hx: No Substance Use Type: None Hx Substance Use Treatment: No Abd/GI Specific PMHX - Complaint Specific PMHX Colitis: No Diverticulitis: No Gall Bladder Disease: No GERD: No Hepatitis: No Irritable Bowel Synd (IBS): No Pancreatitis: No GI Ulcer Disease: No Review of Systems - Review of Systems Able to Perform ROS?: Yes Is the patient limited Latvian proficient: Yes Constitutional: Yes: Symptoms Reported, See HPI, Malaise. No: Fever HEENTM: Yes: See HPI. No: Symptoms Reported ABD/GI: Yes: Symptoms Reported, Abdominal cramping : Yes: Symptoms Reported, See HPI, Burning, Discharge All Other Systems: Reviewed and Negative *Physical Exam - Vital Signs Last Vital Signs Temp Pulse Resp BP Pulse Ox 98.4 F 84 18 142/67 100 03/11/19 09:01 03/11/19 09:01 03/11/19 09:01 03/11/19 09:01 03/11/19 09:01 - Physical Exam General Appearance: Yes: Nourished, Appropriately Dressed. No: Apparent Distress HEENT: positive: RICARDO, Normal ENT Inspection, TMs Normal, Pharynx Normal Neck: positive: Supple. negative: Tender Respiratory/Chest: positive: Lungs Clear Female Pelvic Exam: positive: normal external exam, cervical os closed, normal adnexa, other (cervixappearsto have bluish tint, with moderate to copious amount of thin egkhybwyy-qoyy-aqihvxbg drainage. His nontender without any adenopathy oradnexal tenderness.). negative: CMT Gastrointestinal/Abdominal: positive: Normal Bowel Sounds, Soft. 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, Fully Oriented, Alert, Normal Mood/ Affect ED Treatment Course - ADDITIONAL ORDERS Additional order review: Laboratory Results 03/11/19 09:50 Urine Color Yellow Urine Appearance Clear Urine pH 5.5 D Ur Specific [place] 1.037 H Urine Protein Negative Urine Glucose (UA) Negative Urine Ketones Trace H Urine Blood Negative Urine Nitrite Negative Urine Bilirubin Negative Urine Urobilinogen 0.2 Ur Leukocyte Esterase 1+ H Urine WBC (Auto) 4 Urine RBC (Auto) 3 Urine Casts (Auto) 4 U Epithel Cells (Auto) 2.8 Urine Bacteria (Auto) 53.0 Urine HCG, Qual Positive Progress Note - Progress Note Progress Note: vaginal drainage with any new . Discussed case with Dr. Espinoza and due to patient's penicillin ALLERGY opted to wait until gonorrhea and chlamydia resultingreceived in 2-3 days. Patient will be seen by Dr. Espinoza on . No medications will be prescribed today. *DC/Admit/Observation/Transfer Diagnosis at time of Disposition: Vaginal discharge during Qualifiers: Trimester: first trimester Qualified Code(s): O26.891 - Other specified related conditions, first trimester - Discharge Dispostion Disposition: HOME Condition at time of disposition: Stable Decision to Admit order: No - Referrals Referrals: Nicolette Richter MD [Primary Care Provider] - - Patient Instructions Printed Discharge Instructions: DI for Vaginal Discharge Additional Instructions: You may call and leave message for return phone call with lab results. Be sure to be clear with your name, birthdate, and phone number se sitz bath for soothing effects avoid any creams orvaginal preparations Always use condoms with the partners Followup with [facility] [facility] or PMD in one week for reevaluation and retesting. See Dr. Turner on morning at 11:30 for follow-up appointment for test results and possible treatment - Post Discharge Activity
== END 2019-03-11 10:54 | disposition home or self-care (01) ==
LOC: JERFT 08:59
DX: O26.891 Other specified pregnancy related conditions, first trimester (principal); N89.8 Other specified noninflammatory disorders of vagina; Z3A.00 Weeks of gestation of pregnancy not specified
CPT/HCPCS: 36415; 81003; 84703; 87086; 87491; 87591; 99281-25

== ENCOUNTER 2019-04-16 07:40 | Emergency (ER) | payer OTHER ==
[2019-04-16 07:49] VITALS: BP 113/73; PULSE 62; TEMP 98.2; BMI 29.2
--- NOTE | 2019-04-16 07:54 | PDOC ---
History of Present Illness - General Chief Complaint: Vaginal Sxs Stated Complaint: green vaginal discharge, vaginal pain History Source: Patient Exam Limitations: No Limitations - History of Present Illness Initial Comments: 04/16/19 09:12 24F with pmh of HTN presenting to [facility] with complaint of green vaginal discharge x1 day w/a vaginal pain. Had one episode of green vaginal discharge last night, does not know if there is an odor as she was showering at the time. Endorses Right-sided vaginal pain. Denies fever, chills. Recently, had an elective vacuum on 03/22/19 with no post-op complications, experiencing cramping and thin red blood x1d. Was instructed to avoid intercourse for 2weeks. Patient engaged in nonbarrier intercourse 1wk post-op. H /o of genital herpes, no other STIs. Has a h/o UTIs and bactrim was started by PCP one week prior due to complaint of urinary frequency and presure in the lower abd. Was diagnosed with a yeast infection in January but did not start tx until 1 week prior. Endorses compliance with bactrim and topical vaginal antifungal cream. Timing/Duration: 24 hours Severity: moderate Associated Symptoms: reports: denies symptoms Past History - Travel Traveled outside of the country in the last 30 days: No - Past Medical History Allergies/Adverse Reactions: Allergies Allergy/AdvReac Type Severity Reaction Status Date / Time amoxicillin [Amoxicillin] Allergy Severe Itching Verified 04/16/19 07:45 kiwi Allergy Severe Swelling Verified 04/16/19 07:45 Penicillins Allergy Severe Swelling Verified 04/16/19 07:45 Home Medications: Ambulatory Orders NK [No Known Home Medication] 01/04/19 Asthma: No Cancer: No Cardiac Disorders: No COPD: No DVT: No Diabetes: No HTN: No Seizures: No Thyroid Disease: No - Reproductive History LMP comment: February 06 Cervical CA: No Dysfunctional Uterine Bleeding: No Ectopic : No Endometrial CA: No Polycystic Ovaries: No Tubal Ligation: No - Immunization History Immunization Up to Date: Yes (no flu) - Suicide/Smoking/Psychosocial Hx Smoking Status: Yes (smokes hookah) Smoking History: Current every day smoker (smokes Hookah) Years of Tobacco Use: 3 Have you smoked in the past 12 months: Yes Number of Cigarettes Smoked Daily: 10 'Breaking Loose' booklet given: 01/15/18 Hx Alcohol Use: Yes (social drinking) Drug/Substance Use Hx: No Substance Use Type: None, Alcohol (1-2 beers, weekly) Hx Substance Use Treatment: No Review of Systems - Review of Systems Able to Perform ROS?: Yes Is the patient limited Bolivian proficient: No Constitutional: No: Chills, Fever, Malaise HEENTM: No: Blurred Vision, Double Vision, Difficulty Swallowing Respiratory: No: Cough, Shortness of Breath Cardiac (ROS): Yes: Palpitations. No: Chest Pain, Irregular Heart Rate ABD/GI: No: Constipated, Diarrhea, Nausea, Vomiting : Yes: Frequency, Urgency Musculoskeletal: No: Back Pain, Joint Swelling Neurological: No: Headache, Numbness, Dizziness *Physical Exam - Vital Signs Last Vital Signs Temp Pulse Resp BP Pulse Ox 98.2 F 62 18 113/73 100 04/16/19 07:45 04/16/19 07:45 04/16/19 07:45 04/16/19 07:45 04/16/19 07:45 - Physical Exam General Appearance: Yes: Nourished. No: Mild Distress HEENT: positive: Normal Voice, Scleral Icterus (R), Scleral Icterus (L) Neck: positive: Tender. negative: Trachea midline Respiratory/Chest: positive: Lungs Clear, Normal Breath Sounds Cardiovascular: positive: Regular Rhythm, Regular Rate Female Pelvic Exam: positive: normal external exam, cervical os closed, other ( tenderness of the Right-side of vaginal wall. White mucoid discharge w/o foul smell). negative: normal adnexa, CMT, Bartholin mass, Scalene Gland, adnexal tenderness Gastrointestinal/Abdominal: positive: Soft. negative: Distended, Guarding, Rebound, Tenderness ED Treatment Course - LABORATORY CBC & Chemistry Diagram: 04/16/19 09:28 Medical Decision Making - Medical Decision Making 04/16/19 09:36 24F w/ pmh of HTN presenting with complaint of green mucoid vaginal discharge, no systemic symptoms. Labwork pending, TVUS pending. Starting empiric treatment for cervicitis. # cervicitis - fu GC amplification - abx: ceftriaxone 250mg IM, azithromycin 1000mg PO 04/16/19 10:30 Patient eloped. Contacted through patient's cellphone. She expressed dissatisfaction at the wait time prior in getting her abx tx so she decided to leave. She has arranged for a 10:00am appointment with her FOUNDER AND CHIEF TECHNICAL OFFICER for tomorrow. States understanding that she may have an infection requiring antibiotic treatment. She understands the risks of refusing treatment at this time which could progress to a systemic illness. She was counseled to return to the ED if signs of severe fever, intractable lower abdominal pain. *DC/Admit/Observation/Transfer Diagnosis at time of Disposition: Cervicitis - Discharge Dispostion Disposition: ELOPED Condition at time of disposition: Guarded - Referrals Referrals: Nicolette Richter MD [Primary Care Provider] - - Patient Instructions Additional Instructions: Patient states that she will follow-up with her FOUNDER AND CHIEF TECHNICAL OFFICER on 04/17/19 10:00 - Post Discharge Activity
--- NOTE | 2019-04-16 08:35 | PDOC ---
Attending Attestation - Resident Resident Name: Olivier Sheehan - ED Attending Attestation I have performed the following: I have examined & evaluated the patient, The case was reviewed & discussed with the resident, I agree w/resident's findings & plan, Exceptions are as noted - HPI HPI: 04/16/19 09:20 24y F presents with vaginal irritation and discharge for several days. pt had an ab 03/22, was fine for a while and started developing urinary pressure/ irrigation - pt was treated for a UTI/cory infection but developed greenish vag discharge yesterday. pt trudy any fever/chills, back pain, abd pain, vag bleeding, n/v. pt is in a monogamous relationship and is not using protection as she is trying to get . bottle assembler: Dr. Turner GENERAL: The patient is awake, alert, and fully oriented, Nontoxic - in no acute distress. ABDOMEN: Soft, nontender, No guarding, no rebound. No CVA tenderness PELVIC: exam as documented by resident NEUROLOGICAL: No facial assymetry, Normal speech, moving all 4 extremities sapontnaously and symmetrically PSYCH: Normal mood, normal affect. SKIN: Warm, Dry, normal turgor, consider utheritis/g/c pt rquests treatment will send ua/hcg, will ck TVUS to r/o retained products will have pt fu with bottle assembler - Physicial Exam PE: 04/18/19 07:22 see above - Medical Decision Making 04/18/19 07:22 see above
[2019-04-16 09:52] LABS: EPI CELLS 11.7 /HPF (0-5/HPF); HYALINE CASTS 12 /lpf (0-8); URINE APPEARANCE CLEAR; URINE BACTERIA 52.1 /hpf (NEGATIVE); URINE BILIRUBIN NEGATIVE (NEGATIVE); URINE COLOR YELLOW; URINE GLUCOSE (UA) NEGATIVE (NEGATIVE); URINE KETONE NEGATIVE (NEGATIVE); URINE LEUK ESTERASE 1+ (NEGATIVE); URINE NITRITE NEGATIVE (NEGATIVE); URINE PROTEIN NEGATIVE (NEGATIVE); URINE WBC 8 /hpf (0-5)
[2019-04-16] MEDS ORDERED: AZITHROMYCIN 500 MG TABLET PO ONE (10:00)
[2019-04-16 10:11] LABS: URINE RBC 7.7 /hpf (0-4)
[2019-04-16 10:12] LABS: YEAST NONE SEEN (NEGATIVE)
[2019-04-16] MEDS ORDERED: cefTRIAXone SODIUM 1 GM VIAL ONE (10:20)
[2019-04-16] MEDS ORDERED: AZITHROMYCIN 250 MG TABLET ONE (10:20)
[2019-04-16 12:14] LABS: BASO % 0.6 % (0-2.0); EOS % 1.2 % (0-4.5); HEMATOCRIT 38.3 % (32.4-45.2); HEMOGLOBIN 12.5 GM/dL (10.7-15.3); LYMPH % 55.2 % (8-40); MCH 27.2 pg (25.7-33.7); MCHC 32.7 g/dl (32.0-36.0); MEAN CELL VOLUME 83.2 fl (80-96); MEAN PLT VOLUME 8.5 fl (7.5-11.1); PLATELET COUNT 260 K/MM3 (134-434); RDW 13.9 % (11.6-15.6); WHITE BLOOD COUNT 5.6 K/mm3 (4.0-10.0)
== END 2019-04-16 10:30 | disposition left against medical advice (07) ==
LOC: JER 07:40
DX: N72 Inflammatory disease of cervix uteri (principal); Z87.440 Personal history of urinary (tract) infections
CPT/HCPCS: 36415; 81003; 84702; 85025; 87086; 87186; 87491; 87591; 99283-25

== ENCOUNTER 2019-04-16 20:33 | Emergency (ER) | payer OTHER ==
--- NOTE | 2019-04-16 20:47 | PDOC ---
Rapid Medical Evaluation Chief Complaint: Vaginal Bleeding Time Seen by Provider: 04/16/19 20:45 Medical Evaluation: Allergies Allergy/AdvReac Type Severity Reaction Status Date / Time amoxicillin [Amoxicillin] Allergy Severe Itching Verified 04/16/19 07:45 kiwi Allergy Severe Swelling Verified 04/16/19 07:45 Penicillins Allergy Severe Swelling Verified 04/16/19 07:45 04/16/19 20:46 I have performed a brief in-person evaluation of this patient. The patient presents with a chief complaint of: vaginal bleeding/discharge- seen here earlier today Pertinent physical exam findings: deferred I have ordered the following: TVUS, Ceftriaxone, azithromycin The patient will proceed to the ED for further evaluation. Discharge Disposition - Diagnosis Vaginal discharge - Referrals - Patient Instructions - Post Discharge Activity
[2019-04-16] MEDS ORDERED: AZITHROMYCIN 500 MG TABLET PO ONE (20:48)
[2019-04-16] MEDS ORDERED: GENTAMICIN SO4 *PEDIATRIC* 20 MG/2 ML VIAL IM ONE (20:49)
[2019-04-16 20:51] VITALS: BP 130/82; PULSE 75; TEMP 98.6; BMI 29.2
--- NOTE | 2019-04-16 22:05 | PDOC ---
History of Present Illness - General Chief Complaint: Vaginal Sxs Stated Complaint: VAGINAL BLEEDING Time Seen by Provider: 04/16/19 20:45 - History of Present Illness Initial Comments: 04/16/19 22:03 24-year-old female returns to the emergency room for treatment of STDs and ultrasound which could not be done this morning because she had a be discharged to go to work. No changes throughout the day. Past History - Past Medical History Allergies/Adverse Reactions: Allergies Allergy/AdvReac Type Severity Reaction Status Date / Time amoxicillin [Amoxicillin] Allergy Severe Itching Verified 04/16/19 07:45 kiwi Allergy Severe Swelling Verified 04/16/19 07:45 Penicillins Allergy Severe Swelling Verified 04/16/19 07:45 Home Medications: Ambulatory Orders NK [No Known Home Medication] 01/04/19 Asthma: No Cancer: No Cardiac Disorders: No COPD: No DVT: No Diabetes: No HTN: No Seizures: No Thyroid Disease: No - Reproductive History (#): 8 Para: 2 Cervical CA: No Dysfunctional Uterine Bleeding: No Ectopic : No Endometrial CA: No Polycystic Ovaries: No Therapeutic (s) & number: Yes (5) Tubal Ligation: No Spontaneous : 1 - Immunization History Immunization Up to Date: Yes (no flu) - Suicide/Smoking/Psychosocial Hx Smoking Status: Yes (smokes hookah) Smoking History: Never smoked Years of Tobacco Use: 3 Have you smoked in the past 12 months: No Number of Cigarettes Smoked Daily: 10 Information on smoking cessation initiated: No 'Breaking Loose' booklet given: 01/15/18 Hx Alcohol Use: No Drug/Substance Use Hx: No Substance Use Type: None, Alcohol (1-2 beers, weekly) Hx Substance Use Treatment: No Review of Systems - Review of Systems : Yes: Discharge *Physical Exam - Vital Signs Last Vital Signs Temp Pulse Resp BP Pulse Ox 98.6 F 75 18 130/82 100 04/16/19 20:45 04/16/19 20:45 04/16/19 20:45 04/16/19 20:45 04/16/19 20:45 - Physical Exam Comments: 04/16/19 22:04 HEAD: NC/AT EYES: Conjuntiva clear MS: Full ROM in all joints without edema NEUROLOGIC: No gross sensory or motor deficits, NVID SKIN: Normal color and temperature no lesions or rashes Pelvic examination done earlier today and deferred this evening. There were no changes throughout the day Medical Decision Making - Medical Decision Making 04/16/19 22:42 US WNL will have pt f.u with DATABASE TESTER *DC/Admit/Observation/Transfer Diagnosis at time of Disposition: Vaginal discharge - Discharge Dispostion Disposition: HOME Condition at time of disposition: Stable Decision to Admit order: No - Referrals - Patient Instructions Additional Instructions: You were treated for gonorrhea and chlamydia. Ultrasound was unremarkable for any acute pathology or disease. Return to the emergency room for worsening symptoms and follow-up with your DATABASE TESTER in 1-2 days without fail for further evaluation and treatment options. - Post Discharge Activity
[2019-04-16] MEDS ORDERED: GENTAMICIN SO4 80 MG/2 ML VIAL ONE (22:09)
[2019-04-16] MEDS ORDERED: AZITHROMYCIN 500 MG TABLET ONE (22:13)
== END 2019-04-16 22:45 | disposition home or self-care (01) ==
LOC: JER 20:33
DX: N89.8 Other specified noninflammatory disorders of vagina (principal)
CPT/HCPCS: 76830-TC; 96372; 99281-25

== ENCOUNTER 2019-11-11 23:04 | Emergency (ER) | payer OTHER ==
[2019-11-11 23:28] VITALS: TEMP 98.2; BMI 29.9
[2019-11-12] MEDS ORDERED: SODIUM CHLORIDE 1,000 ML IV STA (01:13)
[2019-11-12] MEDS ORDERED: PYRIDOXINE HCL (B-6) 50 MG TABLET (FP) PO ONE (01:13)
[2019-11-12] MEDS ORDERED: ACETAMINOPHEN 1000 MG/100 ML VIAL (NON FORMULARY) IVPB ONE (01:13)
[2019-11-12 01:34] LABS: BASO % 0.6 % (0-2.0); EOS % 2.6 % (0-4.5); HEMATOCRIT 32.4 % (32.4-45.2); HEMOGLOBIN 10.9 GM/dL (10.7-15.3); LYMPH % 21.9 % (8-40); MCH 28.1 pg (25.7-33.7); MCHC 33.7 g/dl (32.0-36.0); MEAN CELL VOLUME 83.3 fl (80-96); MEAN PLT VOLUME 8.1 fl (7.5-11.1); MONO % 9.8 % (3.8-10.2); NEUT % 65.1 % (42.8-82.8); PLATELET COUNT 195 K/MM3 (134-434); RBC 3.89 M/mm3 (3.60-5.2); WHITE BLOOD COUNT 7.7 K/mm3 (4.0-10.0)
[2019-11-12] MEDS ORDERED: ACETAMINOPHEN INJECTION 100 ML IVPB ONE (01:34)
[2019-11-12 01:35] LABS: PH,URINE 6.5 (5.0-8.0); URINE APPEARANCE CLEAR; URINE BILIRUBIN NEGATIVE (NEGATIVE); URINE COLOR YELLOW; URINE GLUCOSE (UA) NEGATIVE (NEGATIVE); URINE KETONE NEGATIVE (NEGATIVE); URINE LEUK ESTERASE NEGATIVE (NEGATIVE); URINE NITRITE NEGATIVE (NEGATIVE); URINE PROTEIN NEGATIVE (NEGATIVE); URINE UROBILINOGEN 0.2 mg/dL (0.2-1.0)
--- NOTE | 2019-11-12 01:35 | PDOC ---
History of Present Illness - General Chief Complaint: Cold Symptoms Stated Complaint: COUGH/ History Source: Patient Exam Limitations: No Limitations - History of Present Illness Initial Comments: 11/12/19 01:38 24 yo A6 at 19 weeks GA confirmed with US followed by Woman 2 Woman presents to the emergency department with cough, diffuse body aches, and abdominal pressure with coughing. Per the patient, she had onset of symptoms yesterday. She endorses having concurrent nausea without vomiting. 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 She endorses a non productive cough. Denies the following symptoms: chills, SOB, chest pain, vomiting, back pain, dysuria, hematuria, diarrhea, hematochezia, and leg pain/swelling. Allergies: amoxicillin, kiwi, and PCN Past History - Past Medical History Allergies/Adverse Reactions: Allergies Allergy/AdvReac Type Severity Reaction Status Date / Time amoxicillin [Amoxicillin] Allergy Severe Itching Verified 11/11/19 23:25 kiwi Allergy Severe Swelling Verified 11/11/19 23:25 Penicillins Allergy Severe Swelling Verified 11/11/19 23:25 Home Medications: Ambulatory Orders Nitrofurantoin Monohyd/M-Cryst [Macrobid -] 100 mg PO BID #10 capsule 04/19/19 Asthma: No Cancer: No Cardiac Disorders: No COPD: No DVT: No Diabetes: No HTN: No Seizures: No Thyroid Disease: No - Reproductive History (#): 8 Para: 2 Cervical CA: No Dysfunctional Uterine Bleeding: No Ectopic : No Endometrial CA: No Polycystic Ovaries: No Therapeutic (s) & number: Yes (5) Tubal Ligation: No Spontaneous : 1 - Immunization History Immunization Up to Date: Yes (no flu) - Psycho Social/Smoking Cessation Hx Smoking Status: Yes (smokes hookah) Smoking History: Never smoked Years of Tobacco Use: 3 Have you smoked in the past 12 months: Yes Number of Cigarettes Smoked Daily: 10 'Breaking Loose' booklet given: 01/15/18 Hx Alcohol Use: Yes (social drinking) Drug/Substance Use Hx: No Substance Use Type: None, Alcohol (1-2 beers, weekly) Hx Substance Use Treatment: No Review of Systems - Review of Systems Able to Perform ROS?: Yes Is the patient limited Azerbaijani proficient: No Constitutional: Yes: Fever. No: Chills, Diaphoresis, Weakness HEENTM: Yes: Nose Congestion. No: Eye Pain, Ear Pain, Nose Pain, Throat Pain, Mouth Pain Respiratory: Yes: Cough. No: Shortness of Breath, Productive cough, Hemoptysis Cardiac (ROS): No: Chest Pain, Lightheadedness, Palpitations, Chest Tightness ABD/GI: No: Constipated, Diarrhea, Nausea, Rectal Bleeding, Vomiting, Tarry Stools : No: Burning, Dysuria, Hematuria Musculoskeletal: Yes: Muscle Pain (endorses muscle aches). No: Back Pain, Joint Pain, Neck Pain Integumentary: No: Bruising, Erythema, Rash Neurological: No: Headache, Numbness Psychiatric: No: Change in Appetite Endocrine: No: Unexplained Weight Loss Hematologic/Lymphatic: No: Anemia *Physical Exam - Vital Signs Last Vital Signs Temp Pulse Resp BP Pulse Ox 98.2 F 93 H 20 137/77 99 11/11/19 23:24 11/11/19 23:24 11/11/19 23:24 11/11/19 23:24 11/11/19 23:24 - Physical Exam General Appearance: Yes: Nourished, Appropriately Dressed. No: Apparent Distress, Intoxicated HEENT: positive: EOMI, RICARDO, Normal Voice, Symmetrical, Pharyngeal Erythema, Hearing Grossly Normal. negative: Pale Conjunctivae, Scleral Icterus (R), Scleral Icterus (L), Muffled/Hoarse voice, Tonsillar Exudate, Nasal Congestion, Rhinorrhea, Excessive drooling Neck: positive: Trachea midline, Supple. negative: Tender, Lymphadenopathy (R) , Lymphadenopathy (L), Tender lateral, Tender midline Respiratory/Chest: positive: Lungs Clear, Normal Breath Sounds. negative: Chest Tender, Respiratory Distress, Accessory Muscle Use, Crackles, Rales, Rhonchi, Stridor, Wheezing Cardiovascular: positive: Regular Rhythm, Regular Rate, S1, S2. negative: Systolic Murmur Gastrointestinal/Abdominal: positive: Normal Bowel Sounds, Flat, Soft, Other ( gravid exam). negative: Tender, Distended, Guarding, Rebound Lymphatic: negative: Adenopathy Musculoskeletal: positive: Normal Inspection. negative: CVA Tenderness, Vertebral Tenderness Extremity: positive: Normal Capillary Refill, Normal Inspection, Normal Range of Motion. negative: Tender, Swelling, Calf Tenderness Integumentary: positive: Normal Color, Dry, Warm. negative: Swelling, Ecchymosis Neurologic: positive: Fully Oriented, Alert, Normal Mood/Affect ED Treatment Course - LABORATORY CBC & Chemistry Diagram: 11/12/19 01:06 11/12/19 01:06 - ADDITIONAL ORDERS Additional order review: Laboratory Results 11/12/19 01:06 Urine Color Yellow Urine Appearance Clear Urine pH 6.5 Ur Specific Wilder 1.006 L Urine Protein Negative Urine Glucose (UA) Negative Urine Ketones Negative Urine Blood Negative Urine Nitrite Negative Urine Bilirubin Negative Urine Urobilinogen 0.2 Ur Leukocyte Esterase Negative - RADIOLOGY Radiology Studies Ordered: Category Date Time Status US(SINGLE) [US] Stat Ultrasound 11/12/19 01:14 Ordered Medical Decision Making - Medical Decision Making 24 yo A6 at 19 weeks GA confirmed with US followed by Woman 2 Woman presents to the emergency department with cough, diffuse body aches, and abdominal pressure with coughing. Initial vitals: Initial Vital Signs Temp Pulse Resp BP Pulse Ox 98.2 F 93 H 20 137/77 99 11/11/19 23:24 11/11/19 23:24 11/11/19 23:24 11/11/19 23:24 11/11/19 23:24 Work up: patient presents with URI like symptoms. will rule out influenza, UTI, and electrolyte abnormality Laboratory Tests 11/12/19 11/12/19 11/12/19 01:06 01:06 01:06 WBC 7.7 RBC 3.89 Hgb 10.9 Hct 32.4 D MCV 83.3 MCH 28.1 MCHC 33.7 RDW 14.0 Plt Count 195 D MPV 8.1 Absolute Neuts (auto) 5.0 Neutrophils % 65.1 D Lymphocytes % 21.9 D Monocytes % 9.8 Eosinophils % 2.6 D Basophils % 0.6 Nucleated RBC % 0 Sodium 135 L Potassium 4.0 Chloride 104 Carbon Dioxide 22 Anion Gap 9 BUN 4.7 L Creatinine 0.4 L Est GFR (CKD-EPI)AfAm 167.78 Est GFR (CKD-EPI)NonAf 144.76 Random Glucose 89 Calcium 9.3 Total Bilirubin 0.4 AST 25 ALT 36 Alkaline Phosphatase 59 Total Protein 6.6 Albumin 3.2 L Beta HCG, Quant 74658.6 Urine Color Urine Appearance Urine pH Ur Specific Wilder Urine Protein Urine Glucose (UA) Urine Ketones Urine Blood Urine Nitrite Urine Bilirubin Urine Urobilinogen Ur Leukocyte Esterase Influenza A (Rapid) Influenza B (Rapid) Blood Type AB POSITIVE Antibody Screen Negative 11/12/19 11/12/19 01:06 03:07 WBC RBC Hgb Hct MCV MCH MCHC RDW Plt Count MPV Absolute Neuts (auto) Neutrophils % Lymphocytes % Monocytes % Eosinophils % Basophils % Nucleated RBC % Sodium Potassium Chloride Carbon Dioxide Anion Gap BUN Creatinine Est GFR (CKD-EPI)AfAm Est GFR (CKD-EPI)NonAf Random Glucose Calcium Total Bilirubin AST ALT Alkaline Phosphatase Total Protein Albumin Beta HCG, Quant Urine Color Yellow Urine Appearance Clear Urine pH 6.5 Ur Specific Wilder 1.006 L Urine Protein Negative Urine Glucose (UA) Negative Urine Ketones Negative Urine Blood Negative Urine Nitrite Negative Urine Bilirubin Negative Urine Urobilinogen 0.2 Ur Leukocyte Esterase Negative Influenza A (Rapid) Negative Influenza B (Rapid) Negative Blood Type Antibody Screen US shows a low lying posterior placenta with SIUP at 19 weeks 1 day with adequate FHR. The patient's influenza is negative Negative UA Patient was relayed information about the ultrasound findings and advised to have an additional US follow up with her OBGYN physician. Patient understood Patient was re-assessed and had significant improvement in symptoms. Will discharge patient Dispo: Discharge Discharge - Discharge Information Problems reviewed: Yes Clinical Impression/Diagnosis: URI (upper respiratory infection) Disposition: HOME - Admission No - Follow up/Referral Referrals: Nicolette Richter MD [Primary Care Provider] - - Patient Discharge Instructions Patient Printed Discharge Instructions: DI for Viral Upper Respiratory Infection -- Adult Additional Instructions: You were seen in the emergency department for the evaluation of your cough and aches. You likely have a viral infection. Your influenza was negative. Please stay hydrated. Please follow up with your obgyn physician within 1 week after discharge for follow up care and management. Please return to the emergency department if you have worsening or new concerning symptoms. Thank you. - Post Discharge Activity Work/Back to School Note: Back to Work
[2019-11-12] MEDS ORDERED: METOCLOPRAMIDE HCL INJECTION 10 MG/2 ML VIAL IVPB ONE (02:05)
[2019-11-12 02:13] LABS: ALBUMIN 3.2 g/dl (3.4-5.0); BILIRUBIN,TOTAL 0.4 mg/dL (0.2-1); BLOOD UREA NITROGEN 4.7 mg/dL (7-18); CALCIUM 9.3 mg/dL (8.5-10.1); CREATININE 0.4 mg/dL (0.55-1.3); TOT PROT 6.6 g/dl (6.4-8.2)
[2019-11-12] MEDS ORDERED: METOCLOPRAMIDE HCL INJECTION 10 MG/2 ML VIAL ONE (03:48)
[2019-11-12 03:57] VITALS: BP 136/78; PULSE 78
--- NOTE | 2019-11-12 04:06 | PDOC ---
Attending Attestation - Resident Resident Name: TomLupillo - ED Attending Attestation I have performed the following: I have examined & evaluated the patient, The case was reviewed & discussed with the resident, I agree w/resident's findings & plan, Exceptions are as noted - HPI HPI: 11/12/19 04:03 24-year-old female currently 19 weeks here today complaining of abdominal pain but also complaining of generalized body aches cough congestion and subjective fevers myalgias. Does report nausea, but no vomiting no urinary complaints no other complaints no sick contacts no travel - Physicial Exam PE: 11/12/19 04:04 Awake alert no acute distress lungs are clear bilaterally there is nasal congestion noted which is clear. Heart is regular 30 murmurs rubs or gallops abdomen is soft gravid nontender extremities are warm well perfused skin is warm and dry no rash patient is alert and oriented x3 - Medical Decision Making 11/12/19 04:04 24-year-old female currently 19 weeks here with likely viral syndrome possible flu nasal congestion cough and myalgias. Plan transabdominal ultrasound to evaluate wellbeing basic labs IV hydration antiemetics for her nausea patient's lung exam is clear therefore and felt unnecessary to expose to radiation for chest x-ray labs are unremarkable ultrasound shows a low -lying placenta but otherwise live intrauterine 11/12/19 04:05 influenzae is negative. dc home. 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
== END 2019-11-12 04:17 | disposition home or self-care (01) ==
LOC: JER 23:04
PROC: 3E033NZ Introduction of Analgesics, Hypnotics, Sedatives into Peripheral Vein, Percutaneous Approach (ICD-10-PCS; principal; 2019-11-11)
DX: O99.89 Other specified diseases and conditions complicating pregnancy, childbirth and the puerperium (principal); J06.9 Acute upper respiratory infection, unspecified; Z3A.19 19 weeks gestation of pregnancy
CPT/HCPCS: 36415; 76801-TC; 80053; 81003; 84702; 85025; 86850; 86900; 86901; 87086; 87804; 96374; 99285-25; J0131; J7030

== ENCOUNTER 2020-03-26 06:25 | Inpatient (IN) | payer OTHER ==
[~2020-03-26 06:25] MED LIST: CITRIC ACID/SODIUM CITRATE 30 ML UNIT-DOSE CUP PO ONE; ELECTROLYTE-148 SOLN 500 ML IV ONE
[2020-03-26] MEDS ORDERED: METHYLERGONOVINE MALEATE 0.2 MG/1 ML AMP IM PRN (07:12)
[2020-03-26] MEDS ORDERED: WITCH HAZEL 50% (TUCKS) 40 PAD/JAR PAD TP PRN (07:12)
[2020-03-26] MEDS ORDERED: BENZOCAINE 28 GM HEMORRHOIDAL OINTMENT PR PRN (07:12)
[2020-03-26] MEDS ORDERED: BENZOCAINE 20% 57 GM BOTTLE TP PRN (07:12)
--- NOTE | 2020-03-26 07:21 | HP ---
Past Medical History - Primary Care Physician PCP:: Dahlia Bains - Admission Chief Complaint: Previous CS x 2. 38.5 week. hypertension hx History of Present Illness: 24 yo 0 62 edc 04/04/2020 ega 39 week previous CS x 2 for repeat CS no DIGGS vaginal bleeding or abdominal pain History Source: Patient Limitations to Obtaining History: No Limitations - Past Medical History ...: 9 ...Para: 2 ...Term: 2 - Past Surgical History Past Surgical History: Yes: Hx Myomectomy: No Hx Transabdominal Cerclage: No - Smoking History Smoking history: Never smoked Have you smoked in the past 12 months: No Aproximately how many cigarettes per day: 10 - Alcohol/Substance Use Hx Alcohol Use: Yes (social drinking) History of Substance Use: reports: None - Social History ADL: Independent History of Recent Travel: No Home Medications - Allergies Allergies/Adverse Reactions: Allergies Allergy/AdvReac Type Severity Reaction Status Date / Time amoxicillin [Amoxicillin] Allergy Severe Itching Verified 03/26/20 06:54 kiwi Allergy Severe Swelling Verified 03/26/20 06:54 Penicillins Allergy Severe Swelling Verified 03/26/20 06:54 - Home Medications Home Medications: Ambulatory Orders Prenat 115/Iron Fum/Folic/Dss [ 19 Tablet] 1 tab PO DAILY 12/22/19 Problem List - Problems (1) Hypertension Problems reviewed: Yes Code(s): I10 - ESSENTIAL (PRIMARY) HYPERTENSION Qualifiers: Hypertension type: essential hypertension Qualified Code(s): I10 - Essential (primary) hypertension (2) Previous delivery affecting , antepartum Problems reviewed: Yes Code(s): O34.219 - MATERNAL CARE FOR UNSP TYPE SCAR FROM PREVIOUS DEL Assessment/Plan IUP at 38.5 week hypertension previous CS x 2 Cat 1 Plan Repeat CS
[2020-03-26 07:32] VITALS: BMI 32.9
[2020-03-26] MEDS ORDERED: morphine SULFATE/Preservative Free 0.5 MG/ML (1cc Syringe) ONE (07:39)
[2020-03-26] MEDS ORDERED: SUCCINYLCHOLINE CHLORIDE 200 MG/10 ML SYRINGE ONE (07:39)
[2020-03-26] MEDS ORDERED: PROPOFOL 20 ML ONE (07:39)
[2020-03-26] MEDS: ELECTROLYTE-148 SOLN 1,000 ML IV SCH ×2 (07:56→10:16)
[2020-03-26] MEDS ORDERED: OXYTOCIN 20 UNITS in 0.9% NS 20 UNIT/1,000 ML INFUS.BAG IV ONE ×2 (08:55→09:39)
[2020-03-26] MEDS: diphenhydrAMINE HCL 25 MG CAPSULE (FP) PO PRN ×2 (09:40→20:21)
[2020-03-26] MEDS: OXYTOCIN 20 UNITS in 0.9% NS 20 UNIT/1,000 ML INFUS.BAG IV SCH (09:40)
--- NOTE | 2020-03-26 09:54 | OP ---
Operative Note - Note: Operative Date: 03/26/20 Pre-Operative Diagnosis: Hypertension. IUP @38 week. Labor. Previous x 2 Operation: Repeat Post-Operative Diagnosis: Same as Pre-op Surgeon: Dahlia Bains Bicycle Ii Assembler: Marcelino Lacy Anesthesia: General Estimated Blood Loss (mls): 500
[2020-03-26 10:20] LABS: CORD BASE EXCESS -2.3 mmol/L (0-2); CORD HCO3 23.9 mmHg (20-29); CORD PCO2 46.6 mmHg (30-78); CORD pH 7.328 (7.14-7.44)
[2020-03-26 10:22] LABS: CORD HCO3 24.9 mmHg (20-29); CORD PCO2 52.6 mmHg (30-78); CORD pH 7.293 (7.14-7.44)
[2020-03-26] MEDS ORDERED: IBUPROFEN 800 MG/8 ML IJ IVPB ONE (10:29)
[2020-03-26] MEDS: IBUPROFEN 800 MG/8 ML IJ IVPB PRN (10:36)
--- NOTE | 2020-03-26 20:34 | OP ---
DATE OF OPERATION: 03/26/2020 PREOPERATIVE DIAGNOSIS: Previous section x2, hypertension, intrauterine at 38 weeks, and active labor. OPERATION: Repeat section, low transverse. POSTOPERATIVE DIAGNOSIS: Previous section x2, hypertension, intrauterine at 38 weeks, and active labor. Live female . SURGEON: Chris Bains MD. DUAL HOSE CEMENTER: KRYSTIN Soni MD unavailable. ANESTHESIA: Spinal. ANESTHESIOLOGIST: Dr. Craig. . PROCEDURE: Patient was taken to the operating room, placed in supine position. Prepped and draped in usual sterile fashion. Timeout was performed in accordance with hospital regulation. A Pfannenstiel skin incision was made with the previous scar. Cautery was then used to go through layers of abdominal wall to the fascia. Fascia was cut in the midline. Cautery was then used to open the fascia in a smiley fashion. Lashon then used to bluntly and sharply dissect the rectus muscles off the fascia. Muscle was split in the midline. Peritoneal cavity was entered with bladder retractor then placed. Scalpel was then used to make a low transverse uterine incision. Incision was carried upwards with the use of bandage scissors. A live female infant was delivered in the LOP position. Nuchal cord x1 was reduced. Shoulders were delivered without difficulty. Cord was clamped and cut. Cord blood obtained. Cord pH obtained. Infant handed to emergency technician. Uterus exteriorized and cleaned with clean lap pads. Uterine incision then closed using 0 Vicryl suture, 1st layer continuous and locking, 2nd layer imbricating 1st layer. Hemostasis was achieved. Uterus interiorized. Tubes and ovaries noted to be normal. Abdominal sweep done. Peritoneal cavity closed transversely using 0 Biosyn suture. Patient had numerous and muscle which was cut due to, the muscle was then reapproximated using interrupted sutures. Fascia then closed using 0 Vicryl sutures in 2 parts. Subcutaneous was closed using 0 Biosyn suture and interrupted sutures. Skin was then closed using 3-0 Vicryl in subcuticular fashion. The wound was washed and dressed. Patient tolerated procedure well. Estimated blood loss 500 mL. CHRIS BAINS M.D. [id number]
[2020-03-26] MEDS ORDERED: diphenhydrAMINE HCL 25 MG CAPSULE (FP) PO PRN (22:14)
[2020-03-27] MEDS: OXYTOCIN 20 UNITS in 0.9% NS 20 UNIT/1,000 ML INFUS.BAG IV SCH ×2 (04:27→19:39)
[2020-03-27] MEDS: IBUPROFEN 800 MG/8 ML IJ IVPB PRN (04:27)
[2020-03-27] MEDS ORDERED: HYDROmorphone HCL 2 MG TABLET PO PRN (07:12)
[2020-03-27] MEDS ORDERED: oxyCODONE HCL 5 MG TABLET PO PRN ×2 (07:12)
[2020-03-27] MEDS ORDERED: BISACODYL 10 MG SUPP.RECT PR PRN (07:12)
[2020-03-27 09:13] LABS: HEMATOCRIT 28.4 % (32.4-45.2); HEMOGLOBIN 8.9 GM/dL (10.7-15.3); MCH 23.8 pg (25.7-33.7); MCHC 31.1 g/dl (32.0-36.0); MEAN CELL VOLUME 76.4 fl (80-96); MEAN PLT VOLUME 8.2 fl (7.5-11.1); PLATELET COUNT 190 K/MM3 (134-434); RBC 3.72 M/mm3 (3.60-5.2); RDW 15.6 % (11.6-15.6); WHITE BLOOD COUNT 7.5 K/mm3 (4.0-10.0)
[2020-03-27] MEDS: IBUPROFEN 600 MG TABLET (FP) PO PRN ×2 (16:46→21:18)
[2020-03-27] MEDS: ACETAMINOPHEN 325 MG TABLET (FP) PO PRN ×2 (16:46→21:19)
[2020-03-27] MEDS: SIMETHICONE 80 MG TAB.CHEW (FP) PO PRN ×2 (16:47→21:20)
[2020-03-27] MEDS: ELECTROLYTE-148 SOLN 1,000 ML IV SCH ×2 (19:38)
[2020-03-28] MEDS: IBUPROFEN 600 MG TABLET (FP) PO PRN ×2 (05:42→10:04)
[2020-03-28] MEDS: ACETAMINOPHEN 325 MG TABLET (FP) PO PRN ×2 (05:42→10:03)
[2020-03-28] MEDS: SIMETHICONE 80 MG TAB.CHEW (FP) PO PRN (05:43)
[2020-03-28 09:32] VITALS: BP 128/81; PULSE 74; TEMP 98.3
--- NOTE | 2020-03-28 10:04 | DS ---
Physical Exam-[facility] Vital Signs: Vital Signs Temperature 98.3 F 03/28/20 09:00 Pulse Rate 74 03/28/20 09:00 Respiratory Rate 20 03/28/20 09:00 Blood Pressure 128/81 03/28/20 09:00 O2 Sat by Pulse Oximetry (%) 100 03/26/20 10:10 Constitutional: Yes: Well Nourished, No Distress Gastrointestinal: Yes: WNL, Soft ....Post : Yes: Uterus firm, Uterus non-tender Breast(s): Yes: WNL Musculoskeletal: Yes: WNL Labs: CBC, BMP 03/27/20 08:50 Delivery - Delivery Section: Low Flap Transverse Type of Anesthesia: Spinal Episiotomy/Laceration: None EBL (cc): 500 Delivery, Single - Stages of Labor Date 1st Stage Initiatied: 03/26/20 Time 1st Stage Initiated: 03:00 Date 2nd Stage Initiated: 03/26/20 Time 2nd Stage Initiated: 08:00 Date of Delivery: 03/26/20 Time of Delivery: 08:37 Time Placenta Delivered: 08:38 - 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 Present: Yes Name: Shahid Godwin Infant Gender: Female Weight: 7 lb 5 oz Position: Left, OA Total Hours ROM (Hrs/Mins): 1 min - 1 Minute Total Score: 9 5 Minutes Total Score: 9 - [place] Feeding Plan Initial Plan: Exclusive throughout hospitalization Discharge Summary Problems reviewed: Yes Reason For Visit: ADMIT - C/S Current Active Problems Hypertension (Acute) Previous delivery affecting , antepartum (Acute) Procedures: Principal: Section Hospital Course: unremarkable Condition: Good - Instructions Disposition: HOME - Home Medications Comprehensive Discharge Medication List: Ambulatory Orders Prenat 115/Iron Fum/Folic/Dss [ 19 Tablet] 1 tab PO DAILY 12/22/19
[2020-03-28] MEDS ORDERED: SENNOSIDES/DOCUSATE COMBO (SENNA PLUS) TABLET (UD) PO PRN (22:00)
--- NOTE | 2020-03-31 16:25 | PATH ---
Surgical Pathology Report Patient Name: CARIDAD CHEN Med. Rec. 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 Specimen(s) Received PLACENTA Clinical History , 38.4 weeks gestation with chronic hypertension, SAB x1, VTOP x5, previous x2, history of migraines and sciatica Final Diagnosis PLACENTA, SECTION: 394 G THIRD TRIMESTER PLACENTA WITH TRIVASCULAR UMBILICAL CORD AND UNREMARKABLE PLACENTAL MEMBRANES. Electronically Signed Nicolette Torres M.D. Gross Description The specimen is received fresh labeled placenta and is a 394 gram, 19.0 x 16.5 x 2.2 cm. placenta with attached membranes and umbilical cord. The attached membranes are nesbitt, translucent with focal opacities and insert marginally. The umbilical cord measures 18 cm. in length and averages 1 cm. in diameter. The cord inserts eccentrically, 5.5 cm. to the nearest margin. No true knots or strictures are identified. Cut surface of the umbilical cord reveals 3 vessels. The surface is patrick-blue with minimal fibrin deposition and appropriate caliber vessels. The maternal surface is red-brown with focal defects. Sectioning reveals red-brown, spongy parenchyma. No lesions are identified. Rn Patient Care sections are submitted in three cassettes as follows: 1- membrane rolls and umbilical cord; 2-3- full thickness sections of placenta. /03/30/2020 [facility]/03/30/2020
== END 2020-03-28 11:20 | disposition home or self-care (01) | DRG 540 ==
LOC: JLDR 06:25 → J3W 11:25
PROVIDERS: ADMIT Obstetrics & Gynecology; ATTEND Obstetrics & Gynecology
PROC: 10D00Z1 Extraction of Products of Conception, Low, Open Approach (ICD-10-PCS; principal; 2020-03-26)
DX: O82 Encounter for cesarean delivery without indication (principal); O10.02 Pre-existing essential hypertension complicating childbirth; O34.219 Maternal care for unspecified type scar from previous cesarean delivery; O69.81X0 Labor and delivery complicated by cord around neck, without compression, not applicable or unspecified; O99.824 Streptococcus B carrier state complicating childbirth; Z3A.38 38 weeks gestation of pregnancy; Z37.0 Single live birth; Z88.0 Allergy status to penicillin; Z91.018 Allergy to other foods
CPT/HCPCS: 36415; 36600; 82803; 85027; 88307-TC

== ENCOUNTER 2020-03-29 22:52 | Emergency (ER) | payer OTHER ==
[2020-03-29 23:00] VITALS: BMI 27.3
--- NOTE | 2020-03-29 23:45 | PDOC ---
History of Present Illness - General Chief Complaint: Edema Stated Complaint: ANKLE PAIN Time Seen by Provider: 03/29/20 23:38 History Source: Patient, EMS Exam Limitations: No Limitations - History of Present Illness Initial Comments: 03/29/20 23:39 Cristel Patel is a 25F with PMH post- 3 days ago presenting with swelling to her arms and legs. Patient gave to a healthy baby girl by 3 days HIMS MANAGER, tolerated well. Normal history, no complications, mild sciatica, no HTN or GDM. Has been recovering well at home with minimal pain and abd soreness, low vaginal bleeding, no discharge, no urinary sx. Had BM today POD#3. Denies chest pain, SOB, DIGGS, vision changes, cough. Swelling started in L&D before discharge, has not really improved, intermittent numbness/tingling. No history of cardiac or lung disease. Complaining of bilateral breast tenderness, has not been successful , has been bottle feeding. No other PMH, no meds taken. Denies alcohol/drugs/tobacco. Past History - Medical History Allergies/Adverse Reactions: Allergies Allergy/AdvReac Type Severity Reaction Status Date / Time amoxicillin [Amoxicillin] Allergy Severe Itching Verified 03/26/20 06:54 kiwi Allergy Severe Swelling Verified 03/26/20 06:54 Penicillins Allergy Severe Swelling Verified 03/26/20 06:54 Home Medications: Ambulatory Orders Prenat 115/Iron Fum/Folic/Dss [ 19 Tablet] 1 tab PO DAILY 12/22/19 Oxycodone HCl/Acetaminophen [Percocet 5-325 mg Tablet] 2 tab PO Q4H #20 tablet MDD 6 03/28/20 Asthma: No Cancer: No Cardiac Disorders: No COPD: No DVT: No Diabetes: No HTN: Yes (chronic htn- not on medications.) Seizures: No Thyroid Disease: No - Reproductive History (#): 8 Para: 2 Cervical CA: No Dysfunctional Uterine Bleeding: No Ectopic : No Endometrial CA: No Polycystic Ovaries: No Therapeutic (s) & number: Yes (5) Tubal Ligation: No Spontaneous : 1 - Immunization History Immunization Up to Date: Yes (no flu) - Psycho-Social/Smoking History Smoking Status: Yes (smokes hookah) Smoking History: Never smoked Years of Tobacco Use: 3 Have you smoked in the past 12 months: No Number of Cigarettes Smoked Daily: 10 'Breaking Loose' booklet given: 01/15/18 - Substance Abuse Hx (Audit-C & DAST Scrn) How often the patient has a drink containing alcohol: Never Score: In Men: 4 or > Positive; In Women: 3 or > Positive: 0 Screen Result (Pos requires Nsg. Audit-10AR): Negative In the last yr the pt used illegal drug/Rx for NonMed reason: No Score: Yes response is considered Positive: 0 Screen Result (Positive result requires Nsg. DAST-10): Negative Review of Systems - Review of Systems Able to Perform ROS?: Yes Constitutional: No: Chills, Fever HEENTM: No: Symptoms Reported Respiratory: No: Cough, Orthopnea, Shortness of Breath, SOB with Exertion, SOB at Rest Cardiac (ROS): No: Chest Pain, Edema, Irregular Heart Rate, Lightheadedness, Palpitations, Syncope ABD/GI: No: Constipated, Diarrhea, Nausea, Poor Appetite, Poor Fluid Intake, Vomiting : No: Burning, Dysuria, Discharge, Frequency, Flank Pain, Hematuria, Incontinence Musculoskeletal: No: Symptoms Reported Integumentary: No: Symptoms Reported Neurological: No: Symptoms reported Endocrine: No: Symptoms Reported Hematologic/Lymphatic: No: Symptoms Reported All Other Systems: Reviewed and Negative *Physical Exam - Vital Signs Last Vital Signs Temp Pulse Resp BP Pulse Ox 98.6 F 90 19 139/69 98 03/29/20 22:54 03/29/20 22:54 03/29/20 22:54 03/29/20 22:54 03/29/20 22:54 - Physical Exam General Appearance: Yes: Nourished, Appropriately Dressed. No: Apparent Distress HEENT: positive: EOMI, RICARDO, Normal Voice, Symmetrical, Pharynx Normal. n egative: Scleral Icterus (R), Scleral Icterus (L), Pharyngeal Erythema, Tonsillar Exudate, Tonsillar Erythema Neck: positive: Normal Thyroid, Supple. negative: Tender, Trachea midline, Rigid, Lymphadenopathy (R), Lymphadenopathy (L), Tender lateral, Tender midline Respiratory/Chest: positive: Lungs Clear. negative: Chest Tender, Normal Breath Sounds, Respiratory Distress, Accessory Muscle Use, Decreased Breath Sounds, Crackles, Rales, Rhonchi, Stridor, Wheezing Cardiovascular: positive: Regular Rhythm, Regular Rate Gastrointestinal/Abdominal: positive: Normal Bowel Sounds, Flat, Soft, Other (Well-healing Pfannenstiel incision with steri-strips, no bleeding or pus, non- tender.). negative: Tender, Organomegaly, Pulsatile Mass, Protuberent Musculoskeletal: positive: Normal Inspection. negative: CVA Tenderness, CVA Tenderness (R), CVA Tenderness (L), Decreased Range of Motion Extremity: positive: Normal Capillary Refill, Normal Range of Motion, Pedal Edema, Swelling. negative: Normal Inspection, Tender, Cyanosis, Delayed Capillary Refill, Calf Tenderness Integumentary: positive: Normal Color, Dry, Warm. negative: Cyanotic Neurologic: positive: Fully Oriented, Alert, Normal Mood/Affect, Normal Response, Motor Strength 5/5. negative: Numbness (full sensation to BLE), Sensory Deficit Medical Decision Making - Medical Decision Making 03/30/20 00:35 Patient presents POD#3 s/p , has been healing well, has had swelling in BLE since being in L&D before discharge, has not improved or worsened, intermittent numbness that self-resolves. Here because swelling has not gotten better. VSS, low suspicion for pre-ecclampsia, no neuro or CV symptoms. Evaluating swelling via UA for proteinuria, likely benign swelling post- and will probably be discharged home with OB-CHANNEL ROUGHER care. 03/30/20 01:03 UA notable for trace protein, 3+ protein. VSS, low suspicion for pre-ecclampsia. Patient has f/u appt post-op, can be safely discharged home with PB/CHANNEL ROUGHER f/u and return precautions. Discharge - Discharge Information Problems reviewed: Yes Clinical Impression/Diagnosis: Leg swelling Condition: Stable - Admission No - Follow up/Referral Referrals: Dahlia Bains MD [Staff Physician] - - Patient Discharge Instructions Additional Instructions: Today you were evaluated for swelling in your legs after . A urine test was done to check for protein, and there was a small amount. Your vital signs do not suggest that you have pre-ecclampsia, a concerning disease that can cause seizures if worse. You need to follow-up with Dr. Bains this week for further evaluation. If you experience nausea, vomiting, difficulty breathing, severe headache, or any other new or concerning symptoms, return to the emergency room immediately. - Post Discharge Activity
--- NOTE | 2020-03-29 23:47 | PDOC ---
Documentation entered by Marilee Verduzco SCRIBE, acting as scribe for Lisa Mckay MD. Lisa Mckay MD: This documentation has been prepared by the vinayibeDax Ana, SCRIBE, under my direction and personally reviewed by me in its entirety. I confirm that the documentation accurately reflects all work, treatment, procedures, and medical decision making performed by me. Attending Attestation - Resident Resident Name: Marty Parkinson - ED Attending Attestation I have performed the following: I have examined & evaluated the patient, The case was reviewed & discussed with the resident, I agree w/resident's findings & plan, Exceptions are as noted - HPI HPI: 03/29/20 23:43 Patient is a 25 year old female with a significant past medical history of migraines, HTN, UTIs, (gave on 03/26/20 - CSection) who presents to the ED with lower extremity edema x4 days. Patient stated she had 2 episodes of mild swelling throughout her and that they went away on its own but she has been experiencing the current swelling since her accompanied with on/off pain and tingling/numbing in hands/feet. Patient stated she has been self medicating with Tylenol Extra Strength which slightly improved her symptoms. Patient has had 2 BMs since her . Patient denies: any urinary discomfort or any previous kidney issues Allergies: Pencillins, amoxicillin, kiwi, oranges - Physicial Exam PE: 03/30/20 00:08 wnwd 25 yo female with mild b/l swollen ankles and legs head ncat neck supple lungs cta b/l cvs [id number] abd protuberant skin warm and dry extremities lower legs sl swollen,no pitting edema, no erythema neuro axox3,ambulatory 03/30/20 01:08 - Medical Decision Making 03/30/20 01:03 25 yo female p/w bilateral ankle swelling but no pitting edema . She has no nausea ,no vomiting,no headache, no chest pain and no shortness of breath BP= 139/69 she was just discharged yesterday but will call Dr Healy for her follow up appt Discharge - Discharge Information Problems reviewed: Yes Clinical Impression/Diagnosis: Leg swelling Condition: Stable Disposition: HOME - Follow up/Referral Referrals: Dahlia Bains MD [Staff Physician] - - Patient Discharge Instructions Additional Instructions: Today you were evaluated for swelling in your legs after . A urine test was done to check for protein, and there was a small amount. Your vital signs do not suggest that you have pre-ecclampsia, a concerning disease that can cause seizures if worse. You need to follow-up with Dr. Bains this week for further evaluation. If you experience nausea, vomiting, difficulty breathing, severe headache, or any other new or concerning symptoms, return to the emergency room immediately. - Post Discharge Activity
[2020-03-30 00:48] LABS: PH,URINE 7.5 (5.0-8.0); URINE APPEARANCE CLEAR; URINE BILIRUBIN NEGATIVE (NEGATIVE); URINE COLOR YELLOW; URINE GLUCOSE (UA) NEGATIVE (NEGATIVE); URINE KETONE NEGATIVE (NEGATIVE); URINE LEUK ESTERASE 1+ (NEGATIVE); URINE NITRITE NEGATIVE (NEGATIVE); URINE PROTEIN TRACE (NEGATIVE)
[2020-03-30 00:51] VITALS: BP 133/73; PULSE 66; TEMP 98.1
== END 2020-03-30 01:16 | disposition home or self-care (01) ==
LOC: JER 22:52
DX: R60.9 Edema, unspecified (principal)
CPT/HCPCS: 81003; 87077; 87086; 87186; 99283-25

== ENCOUNTER 2020-10-03 02:00 | Emergency (ER) | payer OTHER ==
[2020-10-03 02:15] VITALS: BP 126/77; PULSE 102; TEMP 99.1; BMI 33.6
[2020-10-03] MEDS ORDERED: METOCLOPRAMIDE HCL 10 MG TABLET (FP) PO ONE ×2 (02:29→02:30)
[2020-10-03] MEDS ORDERED: KETOROLAC TROMETHAMINE 60 MG/2 ML VIAL IM ONE (02:29)
[2020-10-03] MEDS ORDERED: KETOROLAC TROMETHAMINE 60 MG/2 ML VIAL ONE (02:30)
== END 2020-10-03 03:10 | disposition home or self-care (01) ==
LOC: FER 02:00
PROC: 3E0233Z Introduction of Anti-inflammatory into Muscle, Percutaneous Approach (ICD-10-PCS; principal; 2020-10-03)
DX: G43.909 Migraine, unspecified, not intractable, without status migrainosus (principal)
CPT/HCPCS: 99284-25

== ENCOUNTER 2022-01-10 18:01 | Emergency (ER) | payer OTHER ==
[2022-01-10 18:17] VITALS: BP 142/89; PULSE 66; TEMP 97.9; BMI 34.7
[2022-01-10] MEDS ORDERED: ONDANSETRON *ODT* 4 MG TABLET SL ONE (19:47)
[2022-01-10] MEDS ORDERED: ONDANSETRON *ODT* 4 MG TABLET ONE (19:56)
== END 2022-01-10 20:18 | disposition home or self-care (01) ==
LOC: JERFT 18:01
DX: J02.9 Acute pharyngitis, unspecified (principal); R09.89 Other specified symptoms and signs involving the circulatory and respiratory systems
CPT/HCPCS: 70360-TC-FY; 71046-TC-FY; 74019-TC-FY; 99285-25; Q0162

== ENCOUNTER 2023-05-21 20:06 | Emergency (ER) | payer OTHER ==
[2023-05-21 20:14] VITALS: RESP 18; BMI 34.7
[2023-05-21] MEDS ORDERED: ACETAMINOPHEN 500 MG TABLET (FP) PO ONE (20:52)
[2023-05-21] MEDS ORDERED: ACETAMINOPHEN 325 MG TABLET (FP) ONE (21:06)
[2023-05-21] MEDS ORDERED: KETOROLAC TROMETHAMINE 30 MG/1 ML VIAL IM ONE (21:40)
[2023-05-21] MEDS ORDERED: KETOROLAC TROMETHAMINE 30 MG/1 ML VIAL ONE (21:50)
[2023-05-21 22:51] VITALS: BP 141/71; PULSE 79; TEMP 98.9
== END 2023-05-21 23:04 | disposition home or self-care (01) ==
LOC: JER 20:06
PROC: 3E0233Z Introduction of Anti-inflammatory into Muscle, Percutaneous Approach (ICD-10-PCS; principal; 2023-05-21)
DX: R51.9 Headache, unspecified (principal)
CPT/HCPCS: 84703; 99284-25

== ENCOUNTER 2023-07-10 19:01 | Emergency (ER) | payer OTHER ==
[2023-07-10 19:09] VITALS: BP 139/71; PULSE 81; RESP 17; TEMP 98.1; BMI 35.1
[2023-07-10 21:33] LABS: URINE APPEARANCE CLEAR; URINE BILIRUBIN NEGATIVE (NEGATIVE); URINE COLOR YELLOW; URINE GLUCOSE (UA) NEGATIVE (NEGATIVE); URINE KETONE NEGATIVE (NEGATIVE); URINE LEUK ESTERASE NEGATIVE (NEGATIVE); URINE NITRITE NEGATIVE (NEGATIVE); URINE PROTEIN NEGATIVE (NEGATIVE); URINE UROBILINOGEN 0.2 mg/dL (0.2-1.0)
[2023-07-10 21:37] LABS: BASO % 1.1 % (0-2.0); HEMATOCRIT 34.6 % (32.4-45.2); HEMOGLOBIN 11.4 GM/dL (10.7-15.3); MCH 25.9 pg (25.7-33.7); MEAN CELL VOLUME 78.5 fl (80-96); MEAN PLT VOLUME 8.1 fl (7.5-11.1); MONO % 8.6 % (3.8-10.2); NEUT % 47.3 % (42.8-82.8); PLATELET COUNT 254 10^3/uL (134-434); RDW 16.1 % (11.6-15.6); WHITE BLOOD COUNT 7.7 K/mm3 (4.0-10.0)
[2023-07-10 21:57] LABS: POTASSIUM 3.9 mmol/L (3.5-5.1)
[2023-07-10 21:59] LABS: ALBUMIN 3.3 g/dl (3.4-5.0); BLOOD UREA NITROGEN 10.6 mg/dL (7-18); CALCIUM 8.8 mg/dL (8.5-10.1)
[2023-07-10 22:02] LABS: CREATININE 0.5 mg/dL (0.55-1.3)
[2023-07-10 22:04] LABS: BILIRUBIN,TOTAL 0.3 mg/dL (0.2-1); TOT PROT 6.9 g/dl (6.4-8.2)
[2023-07-10] MEDS ORDERED: PRENATAL VITAMINS W/ FOLIC ACID TABLET (FP) PO SCH (22:56)
[2023-07-11] MEDS ORDERED: PRENATAL VITAMINS W/ FOLIC ACID TABLET (FP) PO SCH ×2 (10:00→23:11)
== END 2023-07-10 23:14 | disposition home or self-care (01) ==
LOC: JER 19:01
DX: O26.851 Spotting complicating pregnancy, first trimester (principal); O26.891 Other specified pregnancy related conditions, first trimester; R10.30 Lower abdominal pain, unspecified; Z3A.08 8 weeks gestation of pregnancy
CPT/HCPCS: 36415; 76817-TC; 80053; 81003; 84702; 84703; 85025; 86850; 86900; 86901; 87086; 93005; 93010; 99285-25

== ENCOUNTER 2023-09-16 22:27 | Emergency (ER) | payer OTHER ==
[~2023-09-16 22:27] MED LIST changes: -CITRIC ACID/SODIUM CITRATE 30 ML UNIT-DOSE CUP PO ONE; -ELECTROLYTE-148 SOLN 500 ML IV ONE; +LIDOCAINE PATCH REMOVAL MC SCH
[2023-09-16 22:32] VITALS: BP 134/90; PULSE 82; RESP 17; TEMP 98.3; BMI 35.6
[2023-09-16] MEDS ORDERED: LIDOCAINE 5% TOPICAL PATCH TP ONE (23:09)
[2023-09-16] MEDS ORDERED: SODIUM CHLORIDE 0.9% 500 ML INFUS.BAG IV ONE (23:09)
[2023-09-16] MEDS ORDERED: LIDOCAINE 4% PATCH TP ONE ×2 (23:41→23:49)
[2023-09-16] MEDS ORDERED: ACETAMINOPHEN 1000 MG/100 ML BAG IVPB ONE (23:48)
[2023-09-17] MEDS ORDERED: ACETAMINOPHEN INJECTION 100 ML IVPB ONE (00:02)
[2023-09-17 00:10] LABS: HEMATOCRIT 33.8 % (32.4-45.2); HEMOGLOBIN 11.4 GM/dL (10.7-15.3); MCH 27.4 pg (25.7-33.7); MCHC 33.9 g/dl (32.0-36.0); MEAN PLT VOLUME 8.1 fl (7.5-11.1); PLATELET COUNT 238 10^3/uL (134-434); RBC 4.17 M/mm3 (3.60-5.2); RDW 14.5 % (11.6-15.6); WHITE BLOOD COUNT 6.7 K/mm3 (4.0-10.0)
[2023-09-17] MEDS ORDERED: BENZOCAINE/MENTHOL 1 EACH LOZENGE MM ONE (00:39)
[2023-09-17] MEDS ORDERED: BENZOCAINE/MENTH/CETYLPYRD CL 1 EACH LOZENGE MM ONE (00:47)
[2023-09-17 01:25] LABS: BILIRUBIN,TOTAL 0.3 mg/dL (0.2-1); BLOOD UREA NITROGEN 5.4 mg/dL (7-18); CALCIUM 9.2 mg/dL (8.5-10.1); CREATININE 0.4 mg/dL (0.55-1.3); POTASSIUM 3.7 mmol/L (3.5-5.1)
== END 2023-09-17 01:42 | disposition home or self-care (01) ==
LOC: JER 22:27
PROC: 3E033NZ Introduction of Analgesics, Hypnotics, Sedatives into Peripheral Vein, Percutaneous Approach (ICD-10-PCS; principal; 2023-09-17)
DX: O26.892 Other specified pregnancy related conditions, second trimester (principal); R51.9 Headache, unspecified; M54.2 Cervicalgia; H92.02 Otalgia, left ear; Z20.822 Contact with and (suspected) exposure to COVID-19; Z3A.18 18 weeks gestation of pregnancy
CPT/HCPCS: 0241U-QW; 36415; 80053; 85027; 99284-25

== ENCOUNTER 2024-02-13 06:10 | Inpatient (IN) | payer OTHER ==
[2024-02-13 07:18] VITALS: BMI 32.9
[2024-02-13 07:25] LABS: POTASSIUM 3.6 mmol/L (3.5-5.1)
[2024-02-13 07:27] LABS: BLOOD UREA NITROGEN 6.1 mg/dL (7-18); CALCIUM 8.8 mg/dL (8.5-10.1)
[2024-02-13 07:31] LABS: CREATININE 0.5 mg/dL (0.55-1.3)
[2024-02-13] MEDS: CITRIC ACID/SODIUM CITRATE 30 ML UNIT-DOSE CUP PO ONE (07:35)
[2024-02-13] MEDS ORDERED: ONDANSETRON 4 MG/2 ML VIAL IVPUSH PRN (07:54)
[2024-02-13] MEDS: ELECTROLYTE-148 SOLN 1,000 ML IV SCH ×2 (08:00→11:16)
[2024-02-13] MEDS ORDERED: FENTANYL CITRATE/PF 50 MCG/ML VIAL ONE (08:01)
[2024-02-13] MEDS ORDERED: morphine SULFATE/PF 1 MG/2 ML (2cc Syringe - QUVA) ONE (08:01)
[2024-02-13 08:11] LABS: INR 1.04 (0.83-1.09); PROTHROMBIN TIME (PATIENT) 11.7 SEC (9.7-13.0)
[2024-02-13] MEDS ORDERED: LIGASURE IMPACT TP ONE (08:16)
[2024-02-13] MEDS ORDERED: ONDANSETRON 4 MG/2 ML VIAL ONE (08:17)
[2024-02-13] MEDS ORDERED: ceFAZolin SODIUM 1 GM VIAL ONE (08:17)
[2024-02-13] MEDS ORDERED: SIMETHICONE 80 MG TAB.CHEW (FP) PO PRN (08:22)
[2024-02-13] MEDS ORDERED: ACETAMINOPHEN 325 MG TABLET (FP) PO PRN (08:22)
[2024-02-13] MEDS ORDERED: BENZOCAINE 20% 57 GM BOTTLE TP PRN (08:22)
[2024-02-13] MEDS ORDERED: WITCH HAZEL 50% (TUCKS) 40 PAD/JAR PAD TP PRN (08:22)
[2024-02-13] MEDS ORDERED: BENZOCAINE 28 GM HEMORRHOIDAL OINTMENT TP PRN (08:22)
[2024-02-13] MEDS ORDERED: METHYLERGONOVINE MALEATE 0.2 MG/1 ML AMP IM PRN (08:22)
[2024-02-13] MEDS ORDERED: OXYTOCIN 10 UNITS/ML VIAL ONE (08:47)
[2024-02-13] MEDS: OXYTOCIN 20 UNITS in 0.9% NS 20 UNIT/1,000 ML INFUS.BAG IV SCH (09:30)
[2024-02-13] MEDS ORDERED: OXYTOCIN 20 UNITS in 0.9% NS 20 UNIT/1,000 ML INFUS.BAG IV ONE (09:34)
[2024-02-13 10:10] LABS: CORD BASE EXCESS -0.9 mmol/L (0-2); CORD HCO3 25.4 mmHg (20-29); CORD pH 7.342 (7.14-7.44)
[2024-02-13 10:16] LABS: CORD HCO3 26.4 mmHg (20-29); CORD PCO2 61.8 mmHg (30-78); CORD pH 7.249 (7.14-7.44)
[2024-02-13] MEDS ORDERED: IBUPROFEN 800 MG/8 ML IJ IVPB ONE ×2 (11:00→11:03)
[2024-02-13] MEDS: IBUPROFEN 800 MG/8 ML IJ IVPB SCH ×2 (11:10→18:53)
[2024-02-13] MEDS: PRENATAL VITAMINS W/ FOLIC ACID TABLET (FP) PO SCH (11:15)
[2024-02-13] MEDS: FERROUS SO4 325 MG TABLET (FP) PO SCH (11:16)
[2024-02-13] MEDS: ELECTROLYTE-148 SOLN 1,000 ML IV ONE (11:17)
[2024-02-13] MEDS ORDERED: oxyCODONE HCL 5 MG TABLET PO PRN ×2 (20:22)
[2024-02-14 02:29] VITALS: RESP 18
[2024-02-14 07:32] LABS: BASO % 0.4 % (0-2.0); EOS % 1.5 % (0-4.5); HEMATOCRIT 30.4 % (32.4-45.2); HEMOGLOBIN 9.8 GM/dL (10.7-15.3); LYMPH % 28.3 % (8-40); MCH 25.1 pg (25.7-33.7); MCHC 32.4 g/dl (32.0-36.0); MEAN CELL VOLUME 77.4 fl (80-96); MEAN PLT VOLUME 8.5 fl (7.5-11.1); MONO % 7.1 % (3.8-10.2); NEUT % 62.7 % (42.8-82.8); PLATELET COUNT 192 10^3/uL (134-434); RBC 3.92 M/mm3 (3.60-5.2); RDW 14.6 % (11.6-15.6); WHITE BLOOD COUNT 6.6 K/mm3 (4.0-10.0)
[2024-02-14] MEDS ORDERED: BISACODYL 10 MG SUPP.RECT RC PRN (08:22)
[2024-02-14] MEDS: IBUPROFEN 600 MG TABLET (FP) PO PRN (14:28)
[2024-02-14] MEDS: guaiFENesin 200 MG/10 ML 10 ML UNIT-DOSE CUPS PO PRN (18:01)
[2024-02-14 23:39] VITALS: TEMP 98.3
[2024-02-15 14:09] VITALS: BP 138/84; PULSE 69
[2024-02-15] MEDS ORDERED: ALBUTEROL SO4 HFA INHALER IH PRN (14:35)
== END 2024-02-15 17:15 | disposition home or self-care (01) | DRG 540 ==
LOC: JLDR 06:10 → J3W 11:40
PROVIDERS: ADMIT Obstetrics & Gynecology; ATTEND Obstetrics & Gynecology
PROC: 10D00Z1 Extraction of Products of Conception, Low, Open Approach (ICD-10-PCS; principal; 2024-02-13)
DX: O34.211 Maternal care for low transverse scar from previous cesarean delivery (principal); Z3A.39 39 weeks gestation of pregnancy; Z37.0 Single live birth
CPT/HCPCS: 36415; 36600; 80048; 82803; 85025; 85610; 85730; 86850; 86900; 86901; 88307-TC

== ENCOUNTER 2024-02-23 21:50 | Emergency (ER) | payer OTHER ==
[2024-02-23 21:56] VITALS: BP 141/84; PULSE 63; RESP 20; TEMP 98.2; BMI 16.0
[2024-02-23] MEDS ORDERED: DEXAMETHASONE 4 MG TABLET (FP) ONE (22:49)
[2024-02-23] MEDS: DEXAMETHASONE 4 MG TABLET (FP) PO ONE (23:07)
[2024-02-23 23:12] LABS: BASO % 0.7 % (0-2.0); EOS % 3.4 % (0-4.5); HEMATOCRIT 34.5 % (32.4-45.2); HEMOGLOBIN 11.1 GM/dL (10.7-15.3); LYMPH % 38.2 % (8-40); MCH 24.5 pg (25.7-33.7); MCHC 32.1 g/dl (32.0-36.0); MEAN CELL VOLUME 76.1 fl (80-96); MEAN PLT VOLUME 8.5 fl (7.5-11.1); MONO % 12.2 % (3.8-10.2); NEUT % 45.5 % (42.8-82.8); PLATELET COUNT 307 10^3/uL (134-434); RBC 4.53 M/mm3 (3.60-5.2); RDW 15.1 % (11.6-15.6); WHITE BLOOD COUNT 5.8 K/mm3 (4.0-10.0)
[2024-02-23 23:23] LABS: INR 1.09 (0.83-1.09); PROTHROMBIN TIME (PATIENT) 12.3 SEC (9.7-13.0)
[2024-02-23 23:33] LABS: POTASSIUM 4.4 mmol/L (3.5-5.1)
[2024-02-23 23:34] LABS: CALCIUM 8.7 mg/dL (8.5-10.1)
[2024-02-23 23:35] LABS: ALBUMIN 2.8 g/dl (3.4-5.0); BLOOD UREA NITROGEN 12.5 mg/dL (7-18)
[2024-02-23 23:38] LABS: CREATININE 0.6 mg/dL (0.55-1.3)
[2024-02-23 23:40] LABS: BILIRUBIN,TOTAL 0.4 mg/dL (0.2-1); TOT PROT 7.2 g/dl (6.4-8.2)
== END 2024-02-24 02:33 | disposition home or self-care (01) ==
LOC: JER 21:50
DX: O90.2 Hematoma of obstetric wound (principal)
CPT/HCPCS: 36415; 74177-TC; 80053; 83605; 85025; 85610; 85730; 86850; 86900; 86901; 87070; 87076; 87186; 87205; 99285-25; Q9967

== ENCOUNTER 2024-02-25 13:11 | Emergency (ER) | payer OTHER ==
[2024-02-25 13:19] VITALS: RESP 18; BMI 34.4
[2024-02-25] MEDS ORDERED: ACETAMINOPHEN INJECTION 100 ML IVPB ONE (14:39)
[2024-02-25] MEDS ORDERED: FAMOTIDINE 20 MG/50 ML IVPB 20 MG/50 ML MG IVPB ONE (14:39)
[2024-02-25] MEDS ORDERED: DEXAMETHASONE SOD PHOSPHATE 10 MG/1 ML VIAL ONE (14:39)
[2024-02-25] MEDS: DEXAMETHASONE SOD PHOSPHATE 10 MG/1 ML VIAL IVPUSH ONE (14:57)
[2024-02-25] MEDS: FAMOTIDINE 20 MG/50 ML IVPB 20 MG/50 ML MG IVPB ONE (14:57)
[2024-02-25] MEDS: SODIUM CHLORIDE 0.9% 500 ML INFUS.BAG IV ONE (15:06)
[2024-02-25] MEDS: ACETAMINOPHEN 1000 MG/100 ML BAG IVPB ONE (15:06)
[2024-02-25] MEDS ORDERED: LIDOCAINE 4% PATCH TP ONE (15:13)
[2024-02-25] MEDS: LIDOCAINE 4% PATCH TP ONE (15:16)
[2024-02-25 18:10] VITALS: BP 131/83; PULSE 59; TEMP 98.4
[2024-02-25] MEDS ORDERED: LIDOCAINE PATCH REMOVAL MC SCH (22:00)
== END 2024-02-25 18:22 | disposition home or self-care (01) ==
LOC: JERFT 13:11 → JER 13:11 → JERFT 18:22
PROC: 3E033GC Introduction of Other Therapeutic Substance into Peripheral Vein, Percutaneous Approach (ICD-10-PCS; principal; 2024-02-25)
PROC: 3E033GC Introduction of Other Therapeutic Substance into Peripheral Vein, Percutaneous Approach (ICD-10-PCS; 2024-02-25)
PROC: 3E033GC Introduction of Other Therapeutic Substance into Peripheral Vein, Percutaneous Approach (ICD-10-PCS; 2024-02-25)
PROC: 3E033NZ Introduction of Analgesics, Hypnotics, Sedatives into Peripheral Vein, Percutaneous Approach (ICD-10-PCS; 2024-02-25)
DX: L50.9 Urticaria, unspecified (principal); R10.32 Left lower quadrant pain
CPT/HCPCS: 93971-TC; 99284-25; J0131; J1100

== ENCOUNTER 2024-06-10 11:29 | Emergency (ER) | payer OTHER ==
[2024-06-10 11:44] VITALS: BP 140/79; PULSE 61; RESP 17; TEMP 98.6; BMI 31.1
[2024-06-10 13:23] LABS: BASO % 1.2 % (0-2.0); EOS % 0.6 % (0-4.5); HEMATOCRIT 37.1 % (32.4-45.2); HEMOGLOBIN 11.8 GM/dL (10.7-15.3); LYMPH % 43.1 % (8-40); MCH 24.4 pg (25.7-33.7); MCHC 31.8 g/dl (32.0-36.0); MEAN CELL VOLUME 76.9 fl (80-96); MEAN PLT VOLUME 8.1 fl (7.5-11.1); MONO % 11.5 % (3.8-10.2); NEUT % 43.6 % (42.8-82.8); PLATELET COUNT 272 10^3/uL (134-434); RBC 4.83 M/mm3 (3.60-5.2); RDW 15.6 % (11.6-15.6); WHITE BLOOD COUNT 6.7 K/mm3 (4.0-10.0)
[2024-06-10 13:47] LABS: PH,URINE 6.5 (5.0-8.0); URINE APPEARANCE CLEAR; URINE BILIRUBIN NEGATIVE (NEGATIVE); URINE COLOR YELLOW; URINE GLUCOSE (UA) NEGATIVE (NEGATIVE); URINE KETONE NEGATIVE (NEGATIVE); URINE LEUK ESTERASE NEGATIVE (NEGATIVE); URINE NITRITE NEGATIVE (NEGATIVE); URINE PROTEIN NEGATIVE (NEGATIVE); URINE UROBILINOGEN 0.2 mg/dL (0.2-1.0)
[2024-06-10 13:50] LABS: HCG,QUALITATIVE URINE Negative
[2024-06-10 13:56] LABS: POTASSIUM 3.8 mmol/L (3.5-5.1)
[2024-06-10 13:57] LABS: ALBUMIN 3.7 g/dl (3.4-5.0); BLOOD UREA NITROGEN 10.6 mg/dL (7-18); CALCIUM 9.5 mg/dL (8.5-10.1)
[2024-06-10 14:02] LABS: BILIRUBIN,TOTAL 0.6 mg/dL (0.2-1); CREATININE 0.6 mg/dL (0.55-1.3); TOT PROT 7.9 g/dl (6.4-8.2)
[2024-06-10 15:47] LABS: HIV INTERPRETATION NEGATIVE (NEGATIVE)
== END 2024-06-10 15:11 | disposition home or self-care (01) ==
LOC: JER 11:29
DX: R42 Dizziness and giddiness (principal); R55 Syncope and collapse; R11.0 Nausea; R51.9 Headache, unspecified
CPT/HCPCS: 36415; 80053; 81003; 83735; 84703; 85025; 86803; 87086; 87389; 93005; 93010; 99284-25